=== PATIENT | male | born 1945 | race Hispanic/Latino ===

== ENCOUNTER 2020-02-06 12:20 | Emergency (ER) | payer MEDICARE ==
[2020-02-06 12:23] VITALS: BP 145/62
[2020-02-06 12:50] LABS: Basophils % (Auto) 0.5 % (0.0-1.8); Eosinophils # (Auto) 0.2 K/mm3 (0.0-0.4); Eosinophils % (Auto) 1.8 % (0.0-4.3); Hematocrit 29.8 % (35.5-45.6); Hemoglobin 9.6 gm/dl (11.8-15.2); Lymphocytes # (Auto) 1.9 K/mm3 (1.2-5.4); Lymphocytes % (Auto) 20.2 % (13.4-35.0); Mean Corpuscular HGB Conc 32 % (32-34); Mean Corpuscular Volume 89 fl (84-94); Monocytes # (Auto) 0.5 K/mm3 (0.0-0.8); Monocytes % (Auto) 5.8 % (0.0-7.3); Platelet Count 240 K/mm3 (140-440); Red Blood Count 3.36 M/mm3 (3.65-5.03); Red Cell Distribution Width 19.1 % (13.2-15.2)
[2020-02-06 13:02] LABS: Calcium 9.4 mg/dL (8.4-10.2)
--- NOTE | 2020-02-06 13:15 | Emergency Department Report ---
HPI - General Chief Complaint: Psych PUI?: No Time Seen by Provider: 02/06/20 12:57 - HPI HPI: Room 3 The patient is a 75-year-old male present with a chief complaint of combative behavior. The exterminator termite states the patient has been combative for the past 2 days. The patient has a history of bipolar disorder, schizophrenia and dementia. Nurse states the home health team started the patient on dementia medications but the patient has not improved. She states the patient has been throwing things and not sleeping. The patient was found dragging his roommate in the room. Patient denies having any complaints ED Past Medical Hx - Past Medical History Previous Medical History?: Yes Hx Hypertension: Yes Hx CVA: Yes Hx Congestive Heart Failure: Yes Hx Diabetes: Yes Hx Deep Vein Thrombosis: Yes Hx COPD: Yes - Family History Family history: no significant - Social History Smoking Status: Never Smoker Substance Use Type: None ED Review of Systems ROS: Stated complaint: MED CLEARANCE Other details as noted in HPI Constitutional: no symptoms reported Respiratory: no symptoms reported Endocrine: no symptoms reported Neurological: denies: headache Physical Exam - Physical Exam Vital Signs: Vital Signs 02/06/20 12:20 Temperature 97.9 F Pulse Rate 71 Respiratory 16 Rate Blood Pressure 145/62 O2 Sat by Pulse 98 Oximetry Physical Exam: GENERAL: The patient is well-developed well-nourished male lying on stretcher not appearing to be in acute distress. [] HEENT: Normocephalic. Atraumatic. Extraocular motions are intact. Patient has moist mucous membranes. NECK: Supple. Trachea midline CHEST/LUNGS: Clear to auscultation. There is no respiratory distress noted. HEART/CARDIOVASCULAR: Regular. There is no tachycardia. There is no gallop rub or murmur. ABDOMEN: Abdomen is soft, nontender. Patient has normal bowel sounds. There is no abdominal distention. SKIN: There is no rash. There is no edema. There is no diaphoresis. NEURO: The patient is awake, alert, and oriented. The patient is cooperative. The patient has no focal neurologic deficits. The patient has normal speech. Cranial nerves II through XII grossly intact MUSCULOSKELETAL: There is no evidence of acute injury. ED Course Vital Signs 02/06/20 12:20 Temperature 97.9 F Pulse Rate 71 Respiratory 16 Rate Blood Pressure 145/62 O2 Sat by Pulse 98 Oximetry ED Medical Decision Making - Lab Data Result diagrams: 02/06/20 12:25 02/06/20 12:25 Laboratory Tests 02/06/20 02/06/20 02/06/20 12:25 12:25 12:25 WBC RBC Hgb Hct MCV MCH MCHC RDW Plt Count Lymph % (Auto) Smith % (Auto) Eos % (Auto) Baso % (Auto) Lymph # Smith # Eos # Baso # Seg Neutrophils % Seg Neutrophils # Sodium 140 Potassium 4.5 Chloride 103.0 Carbon Dioxide 25 Anion Gap 17 BUN 21 H Creatinine 1.7 H Estimated GFR 39 BUN/Creatinine Ratio 12 Glucose 81 Calcium 9.4 Urine Color Urine Turbidity Urine pH Ur Specific Harwood Urine Protein Urine Glucose (UA) Urine Ketones Urine Blood Urine Nitrite Urine Bilirubin Urine Urobilinogen Ur Leukocyte Esterase Urine WBC (Auto) Urine RBC (Auto) Urine Mucus Salicylates < 0.3 L Urine Opiates Screen Urine Methadone Screen Acetaminophen < 5.0 L Ur Barbiturates Screen Ur Phencyclidine Scrn Ur Amphetamines Screen U Benzodiazepines Scrn Urine Cocaine Screen U Marijuana (THC) Screen Plasma/Serum Alcohol 02/06/20 02/06/20 02/06/20 12:25 12:25 13:49 WBC 9.4 RBC 3.36 L Hgb 9.6 L Hct 29.8 L MCV 89 MCH 29 MCHC 32 RDW 19.1 H Plt Count 240 Lymph % (Auto) 20.2 Smith % (Auto) 5.8 Eos % (Auto) 1.8 Baso % (Auto) 0.5 Lymph # 1.9 Smith # 0.5 Eos # 0.2 Baso # 0.0 Seg Neutrophils % 71.7 H Seg Neutrophils # 6.7 Sodium Potassium Chloride Carbon Dioxide Anion Gap BUN Creatinine Estimated GFR BUN/Creatinine Ratio Glucose Calcium Urine Color Yellow Urine Turbidity Slightly-cloudy Urine pH 8.0 H Ur Specific Harwood 1.009 Urine Protein 30 mg/dl Urine Glucose (UA) Neg Urine Ketones Neg Urine Blood Neg Urine Nitrite Neg Urine Bilirubin Neg Urine Urobilinogen < 2.0 Ur Leukocyte Esterase Lg Urine WBC (Auto) 4.0 Urine RBC (Auto) 2.0 Urine Mucus Few Salicylates Urine Opiates Screen Urine Methadone Screen Acetaminophen Ur Barbiturates Screen Ur Phencyclidine Scrn Ur Amphetamines Screen U Benzodiazepines Scrn Urine Cocaine Screen U Marijuana (THC) Screen Plasma/Serum Alcohol < 0.01 02/06/20 13:49 WBC RBC Hgb Hct MCV MCH MCHC RDW Plt Count Lymph % (Auto) Smith % (Auto) Eos % (Auto) Baso % (Auto) Lymph # Smith # Eos # Baso # Seg Neutrophils % Seg Neutrophils # Sodium Potassium Chloride Carbon Dioxide Anion Gap BUN Creatinine Estimated GFR BUN/Creatinine Ratio Glucose Calcium Urine Color Urine Turbidity Urine pH Ur Specific Harwood Urine Protein Urine Glucose (UA) Urine Ketones Urine Blood Urine Nitrite Urine Bilirubin Urine Urobilinogen Ur Leukocyte Esterase Urine WBC (Auto) Urine RBC (Auto) Urine Mucus Salicylates Urine Opiates Screen Presumptive negative Urine Methadone Screen Presumptive negative Acetaminophen Ur Barbiturates Screen Presumptive negative Ur Phencyclidine Scrn Presumptive negative Ur Amphetamines Screen Presumptive negative U Benzodiazepines Scrn Presumptive negative Urine Cocaine Screen Presumptive negative U Marijuana (THC) Screen Presumptive negative Plasma/Serum Alcohol - Radiology Data Radiology results: report reviewed (CT head), image reviewed (CT head) [facility] [address] [place] [address] Cat Scan Report Signed Patient: PARMINDER STARK MR#: [id number] 02 : 1945 Acct:[id number] Age/Sex: 75 / M ADM Date: 02/06/20 Loc: ED Attending Dr: Ordering Physician: KATHE VILLALOBOS MD Date of Service: 02/06/20 Procedure(s): CT head/brain wo con Accession Number(s): [id number] cc: KATHE VILLALOBOS MD CT head/brain wo con INDICATION / CLINICAL INFORMATION: 75 years Male; Combative behavior. TECHNIQUE: Routine CT head without contrast. All CT scans at this location are performed using CT dose reduction for ALARA by means of automated exposure control. COMPARISON: None. FINDINGS: BRAIN / INTRACRANIAL CONTENTS: There is no old infarct involving the right ganglia capsular region with encephalomalacia and ex vacuo dilatation of the right lateral ventricle. There is otherwise moderate to cerebral white matter disease most consistent with microvascular angiopathy. There is mild cerebral atrophy. There is no definitive CT evidence of acute intracranial hemorrhage or significant mass effect. ORBITS: No significant abnormality of visualized orbits. SINUSES / MASTOIDS: No significant abnormality the visualized paranasal sinuses or mastoid air cells. CRANIOCERVICAL JUNCTION: No significant abnormality. ADDITIONAL FINDINGS: None. IMPRESSION: 1. There is no old infarct involving the right basal ganglia with encephalomalacia. 2. There is otherwise moderate microvascular angiopathy without CT evidence of acute intracranial hemorrhage. Signer Name: Bishnu Mcbride MD Signed: 02/06/2020 2:20 PM Workstation Name: [id number] Transcribed By: MR Dictated By: Bishnu Mcbride MD Electronically Authenticated By: Bishnu Mcbride MD Signed Date/Time: 02/06/201419 DD/ 17 TD/TT: - Differential Diagnosis Dementia, bipolar disorder, schizophrenia Critical care attestation.: If time is entered above; I have spent that time in minutes in the direct care of this critically ill patient, excluding procedure time. ED Disposition Clinical Impression: Dementia Disposition: DC/TX-65 PSY HOSP/PSY UNIT Is pt being admited?: No Does the pt Need Aspirin: No Condition: Stable Additional Instructions: Return to the emergency department should you develop worsening symptoms, inability to tolerate food or liquids, high fever or any other concerns Time of Disposition: 15:22 (Transferred to [facility])
--- NOTE | 2020-02-06 14:25 | Cat Scan Report ---
CT head/brain wo con INDICATION / CLINICAL INFORMATION: 75 years Male; Combative behavior. TECHNIQUE: Routine CT head without contrast. All CT scans at this location are performed using CT dos e reduction for ALARA by means of automated exposure control. COMPARISON: None. FINDINGS: BRAIN / INTRACRANIAL CONTENTS: There is no old infarct involving the right ganglia capsular region wi th encephalomalacia and ex vacuo dilatation of the right lateral ventricle. There is otherwise modera te to cerebral white matter disease most consistent with microvascular angiopathy. There is mild cere bral atrophy. There is no definitive CT evidence of acute intracranial hemorrhage or significant mass effect. ORBITS: No significant abnormality of visualized orbits. SINUSES / MASTOIDS: No significant abnormality the visualized paranasal sinuses or mastoid air cells. CRANIOCERVICAL JUNCTION: No significant abnormality. ADDITIONAL FINDINGS: None. IMPRESSION: 1. There is no old infarct involving the right basal ganglia with encephalomalacia. 2. There is otherwise moderate microvascular angiopathy without CT evidence of acute intracranial hem orrhage. Signer Name: Bishnu Mcbride MD Signed: 02/06/2020 2:20 PM Workstation Name: [id number]
[2020-02-06 14:36] LABS: Amphetamine Screen,Urine PRESUMPTIVE NEGATIVE; Benzodiazepines Screen,Urine PRESUMPTIVE NEGATIVE; Cannabinoid Screen,Urine PRESUMPTIVE NEGATIVE; Cocaine Screen,Urine PRESUMPTIVE NEGATIVE; Methadone Screen,Urine PRESUMPTIVE NEGATIVE; Opiate Screen,Urine PRESUMPTIVE NEGATIVE
[2020-02-06 14:46] LABS: Bilirubin,Urine NEG (Negative); Blood,Urine NEG (Negative); Color,Urine Yellow (Yellow); Mucus,Urine FEW /HPF; Urobilinogen,Urine < 2.0 mg/dL (<2.0)
== END 2020-02-06 21:48 ==
LOC: ED 12:20
DX: F03.91 Unspecified dementia, unspecified severity, with behavioral disturbance (principal); I11.0 Hypertensive heart disease with heart failure; I50.9 Heart failure, unspecified; E11.9 Type 2 diabetes mellitus without complications; J44.9 Chronic obstructive pulmonary disease, unspecified; Z86.73 Personal history of transient ischemic attack (TIA), and cerebral infarction without residual deficits; Z86.718 Personal history of other venous thrombosis and embolism; Z88.8 Allergy status to other drugs, medicaments and biological substances
CPT/HCPCS: 36415; 70450; 80048; 80307; 80320; 81001; 82962; 85025; G0480

== ENCOUNTER 2020-02-06 17:34 | Inpatient (IN) | payer MEDICARE ==
--- NOTE | 2020-02-07 09:30 | History and Physical Report ---
GP History & Physical - History of Present Illness Date of admission: 02/06/20 Date of Examination: 02/07/20 Reason for Admission: Danger to others History of Present Illness: Héctor Stark is a 75y/o male who was admitted for combative behavior toward his caregiver and not sleeping at night, according to medical record. During my interview with the patient this morning, he is sitting in the dayroom, awake. He is confused. He is soft spoken. He can not give any insight to his history or what's going on with him. He says, "I'm not sure why I'm here," when asked his reason for admission. When asking the patient about his mood, he says, "I feel apprehensive." He could not further explain what he was feeling. He denies SI/HI or hallucinations of any kind. PAST PSYCHIATRIC HISTORY Unable to obtain PAST MEDICAL HISTORY: Unable to obtain Family Psychiatric History: Unable to obtain SOCIAL HISTORY Unable to obtain REVIEW OF SYSTEMS Constitutional: Negative for weight loss ENT: Negative for stridor Respiratory: Negative for cough or hemoptysis All other systems reviewed and are negative MENTAL STATUS EXAMINATION General Appearance: Dressed appropriately. Behavior: Shaky, Cooperative Mood: "apprehensive" Affect: Congruent with stated mood Speech: Low tone, and normal pace Thought Process: Impaired Suicidal Ideation: Denies Homicidal Ideation: Denies Hallucinations: Denies Delusions: None elicited Insight and Judgment: Limited Memory/Cognition: Impaired ASSESSMENT Schizoaffective Disorder Treatment Plan Patient will be admitted for inpatient psychiatric evaluation, medication adjustment and close monitoring The patient's behavior, mood, sleep and appetite will be closely monitored. Patient will be enrolled in individual and group therapeutic sessions and encouraged to attend. Patient will be provided with a safe and structured environment. Patient's physical health needs will be addressed by the Hospitalist. Hospitalist Consulted Labs including CBC, CMP, Lipid profile and Hemoglobin A1C ordered Social Assessment will be completed and the Equipment Maintenance Supervisor will work with patient and family to ensure a suitable and safe disposition Medication adjustment will be made as clinically indicated Usual Wellness Anabaptist/Preservation: Continued home medications Risperidone 0.5mg po BID Trazodone 50mg po qhs Geodon 10mg IM q6h prn agitation This is an acknowledgement statement that Héctor Stark is a 75y/o male patient who requires inpatient psychiatric admission for treatment which could reasonably be expected to improve the patient's condition for Schizoaffective Disorder Estimated period of time patient will need to remain in the hospital: [7] Plan for post-hospital care: [Outpatient ] Legal Status: Voluntary Reaction to Hospitalization: Accepting Medications and Allergies Allergies Allergy/AdvReac Type Severity Reaction Status Date / Time meperidine [From Demerol] Allergy Unknown Verified 02/06/20 12:23 sulfamethoxazole Allergy Unknown Verified 02/06/20 12:23 [From Bactrim] trimethoprim [From Bactrim] Allergy Unknown Verified 02/06/20 12:23 Home Medications Medication Instructions Recorded Confirmed Last Taken Type Amiodarone [Cordarone 200 MG TAB] 400 mg PO BID 02/07/20 02/07/20 Unknown History Aspirin [Aspirin BABY CHEW TAB] 81 mg PO DAILY 02/07/20 02/07/20 Unknown History Atorvastatin 40 mg PO HS 02/07/20 02/07/20 Unknown History Docusate Sodium [Colace CAP] 100 mg PO BID 02/07/20 02/07/20 Unknown History Famotidine [Pepcid] 20 mg PO HS 02/07/20 02/07/20 Unknown History Ferrous Sulfate [Iron 325 MG] 325 mg PO DAILY 02/07/20 02/07/20 Unknown History Insulin Detemir (Nf) [Levemir 3 units SQ BID 02/07/20 02/07/20 Unknown History Flextouch (Nf)] Ticagrelor [Brilinta] 90 mg PO BID 02/07/20 02/07/20 Unknown History clonazePAM [ Klonopin] 0.25 mg PO BID PRN 02/07/20 02/07/20 Unknown History Results - Results Labs/Vitals: Laboratory Last Values POC Glucose 125 (70-105) H 02/06/20 22:52 Hemoglobin A1c 5.1 % (4-6) 02/06/20 12:25 Last Vital Signs Temp 97.4 F L 02/06/20 23:22 Pulse 72 02/06/20 23:22 Resp 20 02/06/20 23:22 BP 143/69 02/06/20 23:22 Pulse Ox 97 02/06/20 23:22 Physical Examination - Constitutional Vitals: Vital Signs Temp Pulse Resp BP Pulse Ox 97.4 F L 72 20 143/69 97 02/06/20 23:22 02/06/20 23:22 02/06/20 23:22 02/06/20 23:22 02/06/20 23:22 Temperature -Last 24 Hours Temperature 97.4 F Mental Status Exam - Vital signs Last Vital Signs Temp 97.4 F L 02/06/20 23:22 Pulse 72 02/06/20 23:22 Resp 20 02/06/20 23:22 BP 143/69 02/06/20 23:22 Pulse Ox 97 02/06/20 23:22 Physician Certification - Certification Statement Physician Certification Statement: This is an acknowledgement statement that HÉCTOR STARK is a 75 year old M who requires inpatient psychiatric admission for treatment which could reasonably be expected to improve the patient's condition for Estimated period of time patient will need to remain in the hospital: [ ] Plan for post-hospital care: [ ]
[2020-02-07] MEDS ORDERED: ZIPRASIDONE MESYLATE 20 MG VIAL IM PRN (09:44)
[2020-02-07] MEDS: DOCUSATE SODIUM 100 MG CAP PO SCH ×2 (10:38→21:37)
[2020-02-07] MEDS: risperiDONE 0.25 MG TAB PO SCH ×2 (10:38→21:36)
[2020-02-07] MEDS: FERROUS SULFATE 325 MG TAB PO SCH (10:38)
[2020-02-07] MEDS: ASPIRIN 81 MG TAB CHEW PO SCH (10:38)
[2020-02-07] MEDS: TICAGRELOR 90 MG TAB PO SCH ×2 (10:45→21:35)
[2020-02-07] MEDS: AMIODARONE 200 MG TAB PO SCH ×2 (10:45→21:36)
[2020-02-07] MEDS: INSULIN GLARGINE 100 UNITS/ML SUB-Q SCH (17:38)
[2020-02-07] MEDS: clonazePAM 0.5 MG TAB PO PRN (17:56)
[2020-02-07 20:51] LABS: Basophils % (Auto) 0.4 % (0.0-1.8); Eosinophils # (Auto) 0.1 K/mm3 (0.0-0.4); Eosinophils % (Auto) 0.7 % (0.0-4.3); Hematocrit 31.1 % (35.5-45.6); Lymphocytes # (Auto) 1.8 K/mm3 (1.2-5.4); Lymphocytes % (Auto) 13.9 % (13.4-35.0); Mean Corpuscular HGB Conc 32 % (32-34); Mean Corpuscular Volume 88 fl (84-94); Monocytes # (Auto) 0.7 K/mm3 (0.0-0.8); Monocytes % (Auto) 5.3 % (0.0-7.3); Platelet Count 253 K/mm3 (140-440); Red Blood Count 3.55 M/mm3 (3.65-5.03); Red Cell Distribution Width 19.1 % (13.2-15.2)
[2020-02-07 21:09] LABS: Albumin 3.1 g/dL (3.9-5); Calcium 9.2 mg/dL (8.4-10.2); Chol/HDL Ratio 2.38 %
[2020-02-07] MEDS: FAMOTIDINE 20 MG TAB PO SCH (21:36)
--- NOTE | 2020-02-08 09:06 | Progress Note ---
Subjective Date of service: 02/08/20 Principal diagnosis: Schizoaffective Disorder Subjective Comment: The patient's medical record was reviewed and the patient's progress was discussed with the nursing staff. During my interview with the patient, he was sitting in the chair awake. He was headed to the dayroom with the tech. The patient is a/o x 2. He has tremors. His speech is low and difficult to understand. The patient says he slept "okay." He says, "yes, I saw a giant lizard last night," when asked about any hallucinations. The patient also says he was "a little bit" suicidal when asked. He also says, "I'm a little depressed." Reason for continued inpatient treatment: The patient is suicidal, and hallucinating. REVIEW OF SYSTEMS Constitutional: Negative for weight loss ENT: Negative for stridor Respiratory: Negative for cough or hemoptysis All other systems reviewed and are negative MENTAL STATUS EXAMINATION General Appearance: Dressed appropriately. Behavior: Shaky, Cooperative Mood: "depressed" Affect: Congruent with stated mood Speech: Low tone, and normal pace, difficulty to understand Thought Process: Impaired Suicidal Ideation: Yes Homicidal Ideation: Denies Hallucinations: Visual Delusions: None elicited Insight and Judgment: Limited Memory/Cognition: Impaired ASSESSMENT Schizoaffective Disorder Treatment Plan Patient will be admitted for inpatient psychiatric evaluation, medication adjustment and close monitoring The patient's behavior, mood, sleep and appetite will be closely monitored. Patient will be enrolled in individual and group therapeutic sessions and encouraged to attend. Patient will be provided with a safe and structured environment. Patient's physical health needs will be addressed by the Hospitalist. [email or web address] Consulted Labs including CBC, CMP, Lipid profile and Hemoglobin A1C ordered Social Assessment will be completed and the Finishing Range Operator will work with patient and family to ensure a suitable and safe disposition Medication adjustment will be made as clinically indicated Usual Wellness Temple/Preservation: Increased Risperidone 0.5mg po BID Estimated period of time patient will need to remain in the hospital: [6] Plan for post-hospital care: [Outpatient ] Medications and Allergies Allergies Allergy/AdvReac Type Severity Reaction Status Date / Time meperidine [From Demerol] Allergy Unknown Verified 02/06/20 12:23 sulfamethoxazole Allergy Unknown Verified 02/06/20 12:23 [From Bactrim] trimethoprim [From Bactrim] Allergy Unknown Verified 02/06/20 12:23 Home Medications Medication Instructions Recorded Confirmed Last Taken Type Amiodarone [Cordarone 200 MG TAB] 400 mg PO BID 02/07/20 02/07/20 Unknown History Aspirin [Aspirin BABY CHEW TAB] 81 mg PO DAILY 02/07/20 02/07/20 Unknown History Atorvastatin 40 mg PO HS 02/07/20 02/07/20 Unknown History Docusate Sodium [Colace CAP] 100 mg PO BID 02/07/20 02/07/20 Unknown History Famotidine [Pepcid] 20 mg PO HS 02/07/20 02/07/20 Unknown History Ferrous Sulfate [Iron 325 MG] 325 mg PO DAILY 02/07/20 02/07/20 Unknown History Insulin Detemir (Nf) [Levemir 3 units SQ BID 02/07/20 02/07/20 Unknown History Flextouch (Nf)] Ticagrelor [Brilinta] 90 mg PO BID 02/07/20 02/07/20 Unknown History clonazePAM [ Klonopin] 0.25 mg PO BID PRN 02/07/20 02/07/20 Unknown History Active Meds: Active Medications Amiodarone HCl (Cordarone) 400 mg PO BID [facility] Last Admin: 02/07/20 21:36 Dose: 400 mg Documented by: Aspirin (Baby Aspirin) 81 mg PO DAILY [facility] Last Admin: 02/07/20 10:38 Dose: 81 mg Documented by: Atorvastatin Calcium (Lipitor) 40 mg PO QHS [facility] Last Admin: 02/07/20 21:37 Dose: 40 mg Documented by: Clonazepam (Klonopin) 0.25 mg PO BID PRN PRN Reason: Anxiety Last Admin: 02/07/20 17:56 Dose: 0.25 mg Documented by: Docusate Sodium (Colace) 100 mg PO BID [facility] Last Admin: 02/07/20 21:37 Dose: 100 mg Documented by: Famotidine (Pepcid) 20 mg PO [facility] Last Admin: 02/07/20 21:36 Dose: 20 mg Documented by: Ferrous Sulfate (Feosol) 325 mg PO DAILY [facility] Last Admin: 02/07/20 10:38 Dose: 325 mg Documented by: Insulin Glargine (Lantus) 3 units SUB-Q BIDDIAB [facility] Last Admin: 02/07/20 17:38 Dose: Not Given Documented by: Risperidone (Risperdal) 0.25 mg PO BID [facility] Last Admin: 02/07/20 21:36 Dose: 0.25 mg Documented by: Ticagrelor (Brilinta) 90 mg PO BID [facility] Last Admin: 02/07/20 21:35 Dose: 90 mg Documented by: Ziprasidone (Geodon) 10 mg IM Q6H PRN PRN Reason: Agitation Results - Results Labs/Vitals: Laboratory Last Values WBC 13.0 K/mm3 (4.5-11.0) H 02/07/20 20:10 RBC 3.55 M/mm3 (3.65-5.03) L 02/07/20 20:10 Hgb 10.0 gm/dl (11.8-15.2) L 02/07/20 20:10 Hct 31.1 % (35.5-45.6) L 02/07/20 20:10 MCV 88 fl (84-94) 02/07/20 20:10 MCH 28 pg (28-32) 02/07/20 20:10 MCHC 32 % (32-34) 02/07/20 20:10 RDW 19.1 % (13.2-15.2) H 02/07/20 20:10 Plt Count 253 K/mm3 (140-440) 02/07/20 20:10 Lymph % (Auto) 13.9 % (13.4-35.0) 02/07/20 20:10 Angelina % (Auto) 5.3 % (0.0-7.3) 02/07/20 20:10 Eos % (Auto) 0.7 % (0.0-4.3) 02/07/20 20:10 Baso % (Auto) 0.4 % (0.0-1.8) 02/07/20 20:10 Lymph # 1.8 K/mm3 (1.2-5.4) 02/07/20 20:10 Angelina # 0.7 K/mm3 (0.0-0.8) 02/07/20 20:10 Eos # 0.1 K/mm3 (0.0-0.4) 02/07/20 20:10 Baso # 0.0 K/mm3 (0.0-0.1) 02/07/20 20:10 Seg Neutrophils % 79.7 % (40.0-70.0) H 02/07/20 20:10 Seg Neutrophils # 10.4 K/mm3 (1.8-7.7) H 02/07/20 20:10 Sodium 137 mmol/L (137-145) 02/07/20 20:10 Potassium 4.2 mmol/L (3.6-5.0) 02/07/20 20:10 Chloride 101.6 mmol/L (98-107) 02/07/20 20:10 Carbon Dioxide 20 mmol/L (22-30) L 02/07/20 20:10 Anion Gap 20 mmol/L 02/07/20 20:10 BUN 27 mg/dL (9-20) H 02/07/20 20:10 Creatinine 2.0 mg/dL (0.8-1.5) H 02/07/20 20:10 Estimated GFR 33 ml/min 02/07/20 20:10 BUN/Creatinine Ratio 14 % 02/07/20 20:10 Glucose 132 mg/dL (75-100) H 02/07/20 20:10 POC Glucose 133 (70-105) H 02/08/20 06:52 Hemoglobin A1c 5.1 % (4-6) 02/06/20 12:25 Calcium 9.2 mg/dL (8.4-10.2) 02/07/20 20:10 Total Bilirubin 0.40 mg/dL (0.1-1.2) 02/07/20 20:10 AST 28 units/L (5-40) 02/07/20 20:10 ALT 19 units/L (7-56) 02/07/20 20:10 Alkaline Phosphatase 79 units/L (35-129) 02/07/20 20:10 Total Protein 7.2 g/dL (6.3-8.2) 02/07/20 20:10 Albumin 3.1 g/dL (3.9-5) L 02/07/20 20:10 Albumin/Globulin Ratio 0.8 % 02/07/20 20:10 Triglycerides 131 mg/dL (2-149) 02/07/20 20:10 Cholesterol 119 mg/dL (50-199) 02/07/20 20:10 LDL Cholesterol Direct 49 mg/dL (50-130) L 02/07/20 20:10 HDL Cholesterol 50 mg/dL (40-59) 02/07/20 20:10 Cholesterol/HDL Ratio 2.38 % 02/07/20 20:10 TSH 5.280 mlU/mL (0.270-4.200) H 02/07/20 20:10 Last Vital Signs Temp 98.4 F 02/07/20 20:00 Pulse 89 02/07/20 20:00 Resp 20 02/07/20 20:00 BP 105/62 02/07/20 20:00 Pulse Ox 98 02/07/20 20:00
[2020-02-08] MEDS: DOCUSATE SODIUM 100 MG CAP PO SCH ×2 (09:42→21:06)
[2020-02-08] MEDS: ASPIRIN 81 MG TAB CHEW PO SCH (09:42)
[2020-02-08] MEDS: FERROUS SULFATE 325 MG TAB PO SCH (09:42)
[2020-02-08] MEDS: TICAGRELOR 90 MG TAB PO SCH ×2 (09:43→21:06)
[2020-02-08] MEDS: AMIODARONE 200 MG TAB PO SCH ×2 (09:43→21:07)
[2020-02-08] MEDS: INSULIN GLARGINE 100 UNITS/ML SUB-Q SCH ×2 (09:43→17:42)
[2020-02-08] MEDS: risperiDONE 0.25 MG TAB PO SCH ×2 (10:00→21:07)
[2020-02-08] MEDS: clonazePAM 0.5 MG TAB PO PRN (15:59)
--- NOTE | 2020-02-08 16:17 | Consultation ---
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 has started dementia medications with no improvement Patient was unable to sleep combative throwing things Patient was admitted to inpatient psych facility for further evaluation and management Hospitalist services were requested medical consult, Patient has history of hypertension diabetes mellitus congestive heart failure DVT and COPD and also has history of CVA Patient is unable to give the history, details obtained from the ER and psych notes Past History Past Medical History: CAD, COPD, diabetes, hypertension, stroke Past Surgical History: No surgical history Social history: no significant social history Medications and Allergies Allergies Allergy/AdvReac Type Severity Reaction Status Date / Time meperidine [From Demerol] Allergy Unknown Verified 02/06/20 12:23 sulfamethoxazole Allergy Unknown Verified 02/06/20 12:23 [From Bactrim] trimethoprim [From Bactrim] Allergy Unknown Verified 02/06/20 12:23 Home Medications Medication Instructions Recorded Confirmed Last Taken Type Amiodarone [Cordarone 200 MG TAB] 400 mg PO BID 02/07/20 02/07/20 Unknown History Aspirin [Aspirin BABY CHEW TAB] 81 mg PO DAILY 02/07/20 02/07/20 Unknown History Atorvastatin 40 mg PO HS 02/07/20 02/07/20 Unknown History Docusate Sodium [Colace CAP] 100 mg PO BID 02/07/20 02/07/20 Unknown History Famotidine [Pepcid] 20 mg PO HS 02/07/20 02/07/20 Unknown History Ferrous Sulfate [Iron 325 MG] 325 mg PO DAILY 02/07/20 02/07/20 Unknown History Insulin Detemir (Nf) [Levemir 3 units SQ BID 02/07/20 02/07/20 Unknown History Flextouch (Nf)] Ticagrelor [Brilinta] 90 mg PO BID 02/07/20 02/07/20 Unknown History clonazePAM [ Klonopin] 0.25 mg PO BID PRN 02/07/20 02/07/20 Unknown History Active Meds: Active Medications Amiodarone HCl (Cordarone) 400 mg PO BID [facility] Last Admin: 02/08/20 09:43 Dose: 400 mg Documented by: Aspirin (Baby Aspirin) 81 mg PO DAILY [facility] Last Admin: 02/08/20 09:42 Dose: 81 mg Documented by: Atorvastatin Calcium (Lipitor) 40 mg PO QHS [facility] Last Admin: 02/07/20 21:37 Dose: 40 mg Documented by: Clonazepam (Klonopin) 0.25 mg PO BID PRN PRN Reason: Anxiety Last Admin: 02/08/20 15:59 Dose: 0.25 mg Documented by: Docusate Sodium (Colace) 100 mg PO BID [facility] Last Admin: 02/08/20 09:42 Dose: 100 mg Documented by: Famotidine (Pepcid) 20 mg PO HS [facility] Last Admin: 02/07/20 21:36 Dose: 20 mg Documented by: Ferrous Sulfate (Feosol) 325 mg PO DAILY [facility] Last Admin: 02/08/20 09:42 Dose: 325 mg Documented by: Insulin Glargine (Lantus) 3 units SUB-Q BIDDIAB [facility] Last Admin: 02/08/20 09:43 Dose: 3 units Documented by: Risperidone (Risperdal) 0.5 mg PO BID [facility] Last Admin: 02/08/20 10:00 Dose: 0.5 mg Documented by: Ticagrelor (Brilinta) 90 mg PO BID [facility] Last Admin: 02/08/20 09:43 Dose: 90 mg Documented by: Ziprasidone (Geodon) 10 mg IM Q6H PRN PRN Reason: Agitation Review of Systems ROS unobtainable: due to mental status Exam - Constitutional Vitals: Temp Pulse Resp BP Pulse Ox 98.4 F 89 20 105/62 98 02/07/20 20:00 02/07/20 20:00 02/07/20 20:00 02/07/20 20:00 02/07/20 20:00 General appearance: Present: no acute distress, well-nourished, other (Confused) - EENT Eyes: Present: PERRL, EOM intact - Neck Neck: Present: supple, normal ROM - Respiratory Respiratory effort: normal Respiratory: bilateral: diminished, negative: rales, rhonchi - Cardiovascular Rhythm: regular Heart Sounds: Present: S1 & S2 - Extremities Extremities: no ischemia, No edema - Abdominal General gastrointestinal: Present: soft, non-tender, non-distended, normal bowel sounds - Integumentary Integumentary: Present: clear, warm - Musculoskeletal Musculoskeletal: strength equal bilaterally - Psychiatric Psychiatric: appropriate mood/affect, other (Confused and slow speech) - Neurologic Neurologic: other (Residual weakness) Results - Labs CBC & Chem 7: 02/07/20 20:10 02/07/20 20:10 Labs: Abnormal lab results 02/07/20 02/07/20 02/07/20 Range/Units 17:05 20:10 20:10 WBC 13.0 H (4.5-11.0) K/mm3 RBC 3.55 L (3.65-5.03) M/mm3 Hgb 10.0 L (11.8-15.2) gm/dl Hct 31.1 L (35.5-45.6) % RDW 19.1 H (13.2-15.2) % Seg Neutrophils % 79.7 H (40.0-70.0) % Seg Neutrophils # 10.4 H (1.8-7.7) K/mm3 Carbon Dioxide 20 L (22-30) mmol/L BUN 27 H (9-20) mg/dL Creatinine 2.0 H (0.8-1.5) mg/dL Glucose 132 H (75-100) mg/dL POC Glucose 127 H (70-105) Albumin 3.1 L (3.9-5) g/dL LDL Cholesterol Direct 49 L (50-130) mg/dL TSH (0.270-4.200) mlU/mL 02/07/20 02/07/20 02/08/20 Range/Units 20:10 20:52 06:52 WBC (4.5-11.0) K/mm3 RBC (3.65-5.03) M/mm3 Hgb (11.8-15.2) gm/dl Hct (35.5-45.6) % RDW (13.2-15.2) % Seg Neutrophils % (40.0-70.0) % Seg Neutrophils # (1.8-7.7) K/mm3 Carbon Dioxide (22-30) mmol/L BUN (9-20) mg/dL Creatinine (0.8-1.5) mg/dL Glucose (75-100) mg/dL POC Glucose 166 H 133 H (70-105) Albumin (3.9-5) g/dL LDL Cholesterol Direct (50-130) mg/dL TSH 5.280 H (0.270-4.200) mlU/mL 02/08/20 Range/Units 12:09 WBC (4.5-11.0) K/mm3 RBC (3.65-5.03) M/mm3 Hgb (11.8-15.2) gm/dl Hct (35.5-45.6) % RDW (13.2-15.2) % Seg Neutrophils % (40.0-70.0) % Seg Neutrophils # (1.8-7.7) K/mm3 Carbon Dioxide (22-30) mmol/L BUN (9-20) mg/dL Creatinine (0.8-1.5) mg/dL Glucose (75-100) mg/dL POC Glucose 167 H (70-105) Albumin (3.9-5) g/dL LDL Cholesterol Direct (50-130) mg/dL TSH (0.270-4.200) mlU/mL Assessment and Plan --Schizoaffective disorder; --Suicidal behavior Management per psych --Hypertension; moderate control Continue current antihypertensives --History of CVA; with residual weakness Supportive care --Coronary artery disease; continue home medications --Dyslipidemia; continue statin --DVT prophylaxis; SCDs while resting --Full CODE STATUS Closely monitor the patient and adjust the management as needed Thank you for this consultation We will follow the patient along with you as needed
[2020-02-08] MEDS: FAMOTIDINE 20 MG TAB PO SCH (21:08)
[2020-02-09] MEDS: INSULIN GLARGINE 100 UNITS/ML SUB-Q SCH ×2 (09:08→17:37)
--- NOTE | 2020-02-09 09:47 | Progress Note ---
Subjective Date of service: 02/09/20 Principal diagnosis: Schizoaffective Disorder Subjective Comment: The patient's medical record was reviewed and the patient's progress was discussed with the nursing staff. During my interview with the patient, the patient is lying in bed, awake. He is a/o x 1. His speech is very difficult to understand. He has tremors. He says, "okay" when asked about his mood. The patient denies hallucinations. When asked about suicidal thoughts, he says, "a little." Reason for continued inpatient treatment: The patient is suicidal, and hallucinating yesterday. REVIEW OF SYSTEMS Constitutional: Negative for weight loss ENT: Negative for stridor Respiratory: Negative for cough or hemoptysis All other systems reviewed and are negative MENTAL STATUS EXAMINATION General Appearance: Dressed appropriately. Behavior: Shaky, Cooperative Mood: "okay" Affect: Congruent with stated mood Speech: Low tone, and normal pace, garbled. difficulty to understand Thought Process: Impaired Suicidal Ideation: Yes Homicidal Ideation: Denies Hallucinations: Denies at present, most recent yesterday Delusions: None elicited Insight and Judgment: Limited Memory/Cognition: Impaired ASSESSMENT Schizoaffective Disorder Treatment Plan Patient will be admitted for inpatient psychiatric evaluation, medication adjustment and close monitoring The patient's behavior, mood, sleep and appetite will be closely monitored. Patient will be enrolled in individual and group therapeutic sessions and encouraged to attend. Patient will be provided with a safe and structured environment. Patient's physical health needs will be addressed by the Hospitalist. Hospitalist Consulted Labs including CBC, CMP, Lipid profile and Hemoglobin A1C ordered Social Assessment will be completed and the Tumbler Dyeing Machine Operator will work with patient and family to ensure a suitable and safe disposition Medication adjustment will be made as clinically indicated Usual Wellness Baptism/Preservation: Increased Risperidone 1mg po BID Changed Klonoin 0.25mg prn to scheduled Estimated period of time patient will need to remain in the hospital: [5] Plan for post-hospital care: [Outpatient ] Medications and Allergies Allergies Allergy/AdvReac Type Severity Reaction Status Date / Time meperidine [From Demerol] Allergy Unknown Verified 02/06/20 12:23 sulfamethoxazole Allergy Unknown Verified 02/06/20 12:23 [From Bactrim] trimethoprim [From Bactrim] Allergy Unknown Verified 02/06/20 12:23 Home Medications Medication Instructions Recorded Confirmed Last Taken Type Amiodarone [Cordarone 200 MG TAB] 400 mg PO BID 02/07/20 02/07/20 Unknown History Aspirin [Aspirin BABY CHEW TAB] 81 mg PO DAILY 02/07/20 02/07/20 Unknown History Atorvastatin 40 mg PO HS 02/07/20 02/07/20 Unknown History Docusate Sodium [Colace CAP] 100 mg PO BID 02/07/20 02/07/20 Unknown History Famotidine [Pepcid] 20 mg PO HS 02/07/20 02/07/20 Unknown History Ferrous Sulfate [Iron 325 MG] 325 mg PO DAILY 02/07/20 02/07/20 Unknown History Insulin Detemir (Nf) [Levemir 3 units SQ BID 02/07/20 02/07/20 Unknown History Flextouch (Nf)] Ticagrelor [Brilinta] 90 mg PO BID 02/07/20 02/07/20 Unknown History clonazePAM [ Klonopin] 0.25 mg PO BID PRN 02/07/20 02/07/20 Unknown History Active Meds: Active Medications Amiodarone HCl (Cordarone) 400 mg PO BID [facility] Last Admin: 02/08/20 21:07 Dose: 400 mg Documented by: Aspirin (Baby Aspirin) 81 mg PO DAILY [facility] Last Admin: 02/08/20 09:42 Dose: 81 mg Documented by: Atorvastatin Calcium (Lipitor) 40 mg PO QHS [facility] Last Admin: 02/08/20 21:07 Dose: 40 mg Documented by: Clonazepam (Klonopin) 0.25 mg PO BID PRN PRN Reason: Anxiety Last Admin: 02/08/20 15:59 Dose: 0.25 mg Documented by: Docusate Sodium (Colace) 100 mg PO BID [facility] Last Admin: 02/08/20 21:06 Dose: 100 mg Documented by: Famotidine (Pepcid) 20 mg PO [facility] Last Admin: 02/08/20 21:08 Dose: 20 mg Documented by: Ferrous Sulfate (Feosol) 325 mg PO DAILY [facility] Last Admin: 02/08/20 09:42 Dose: 325 mg Documented by: Insulin Glargine (Lantus) 3 units SUB-Q BIDDIAB [facility] Last Admin: 02/09/20 09:08 Dose: 3 units Documented by: Risperidone (Risperdal) 0.5 mg PO BID [facility] Last Admin: 02/08/20 21:07 Dose: 0.5 mg Documented by: Ticagrelor (Brilinta) 90 mg PO BID [facility] Last Admin: 02/08/20 21:06 Dose: 90 mg Documented by: Ziprasidone (Geodon) 10 mg IM Q6H PRN PRN Reason: Agitation Results - Results Labs/Vitals: Laboratory Last Values WBC 13.0 K/mm3 (4.5-11.0) H 02/07/20 20:10 RBC 3.55 M/mm3 (3.65-5.03) L 02/07/20 20:10 Hgb 10.0 gm/dl (11.8-15.2) L 02/07/20 20:10 Hct 31.1 % (35.5-45.6) L 02/07/20 20:10 MCV 88 fl (84-94) 02/07/20 20:10 MCH 28 pg (28-32) 02/07/20 20:10 MCHC 32 % (32-34) 02/07/20 20:10 RDW 19.1 % (13.2-15.2) H 02/07/20 20:10 Plt Count 253 K/mm3 (140-440) 02/07/20 20:10 Lymph % (Auto) 13.9 % (13.4-35.0) 02/07/20 20:10 [place] % (Auto) 5.3 % (0.0-7.3) 02/07/20 20:10 Eos % (Auto) 0.7 % (0.0-4.3) 02/07/20 20:10 Baso % (Auto) 0.4 % (0.0-1.8) 02/07/20 20:10 Lymph # 1.8 K/mm3 (1.2-5.4) 02/07/20 20:10 [place] # 0.7 K/mm3 (0.0-0.8) 02/07/20 20:10 Eos # 0.1 K/mm3 (0.0-0.4) 02/07/20 20:10 Baso # 0.0 K/mm3 (0.0-0.1) 02/07/20 20:10 Seg Neutrophils % 79.7 % (40.0-70.0) H 02/07/20 20:10 Seg Neutrophils # 10.4 K/mm3 (1.8-7.7) H 02/07/20 20:10 Sodium 137 mmol/L (137-145) 02/07/20 20:10 Potassium 4.2 mmol/L (3.6-5.0) 02/07/20 20:10 Chloride 101.6 mmol/L (98-107) 02/07/20 20:10 Carbon Dioxide 20 mmol/L (22-30) L 02/07/20 20:10 Anion Gap 20 mmol/L 02/07/20 20:10 BUN 27 mg/dL (9-20) H 02/07/20 20:10 Creatinine 2.0 mg/dL (0.8-1.5) H 02/07/20 20:10 Estimated GFR 33 ml/min 02/07/20 20:10 BUN/Creatinine Ratio 14 % 02/07/20 20:10 Glucose 132 mg/dL (75-100) H 02/07/20 20:10 POC Glucose 119 (70-105) H 02/09/20 06:23 Hemoglobin A1c 5.1 % (4-6) 02/06/20 12:25 Calcium 9.2 mg/dL (8.4-10.2) 02/07/20 20:10 Total Bilirubin 0.40 mg/dL (0.1-1.2) 02/07/20 20:10 AST 28 units/L (5-40) 02/07/20 20:10 ALT 19 units/L (7-56) 02/07/20 20:10 Alkaline Phosphatase 79 units/L (35-129) 02/07/20 20:10 Total Protein 7.2 g/dL (6.3-8.2) 02/07/20 20:10 Albumin 3.1 g/dL (3.9-5) L 02/07/20 20:10 Albumin/Globulin Ratio 0.8 % 02/07/20 20:10 Triglycerides 131 mg/dL (2-149) 02/07/20 20:10 Cholesterol 119 mg/dL (50-199) 02/07/20 20:10 LDL Cholesterol Direct 49 mg/dL (50-130) L 02/07/20 20:10 HDL Cholesterol 50 mg/dL (40-59) 02/07/20 20:10 Cholesterol/HDL Ratio 2.38 % 02/07/20 20:10 TSH 5.280 mlU/mL (0.270-4.200) H 02/07/20 20:10 Last Vital Signs Temp 98.4 F 02/07/20 20:00 Pulse 100 H 02/08/20 19:33 Resp 18 02/08/20 09:22 BP 152/77 02/08/20 19:31 Pulse Ox 98 02/08/20 19:33
[2020-02-09] MEDS: DOCUSATE SODIUM 100 MG CAP PO SCH ×2 (11:26→22:29)
[2020-02-09] MEDS: risperiDONE 1 MG TAB PO SCH ×2 (11:26→22:28)
[2020-02-09] MEDS: ASPIRIN 81 MG TAB CHEW PO SCH (11:27)
[2020-02-09] MEDS: FERROUS SULFATE 325 MG TAB PO SCH (11:27)
[2020-02-09] MEDS: clonazePAM 0.5 MG TAB PO SCH ×2 (11:27→22:28)
[2020-02-09] MEDS: AMIODARONE 200 MG TAB PO SCH ×2 (11:27→22:27)
[2020-02-09] MEDS: TICAGRELOR 90 MG TAB PO SCH ×2 (11:29→22:28)
--- NOTE | 2020-02-09 15:06 | XRay Report ---
CHEST 1 VIEW 2:39 PM INDICATION / CLINICAL INFORMATION: Congestion. COMPARISON: None available. FINDINGS: SUPPORT DEVICES: None. HEART / MEDIASTINUM: Median sternotomy. Mild cardiomegaly. Normal pulmonary vasculature. LUNGS / PLEURA: Tiny calcified granuloma in the left midlung laterally. No significant pulmonary or p leural abnormality. No pneumothorax. ADDITIONAL FINDINGS: No significant additional findings. IMPRESSION: No acute findings. Signer Name: Ramos Osborne MD Signed: 02/09/2020 3:02 PM Workstation Name: [id number]
[2020-02-09] MEDS: FAMOTIDINE 20 MG TAB PO SCH (22:27)
[2020-02-10] MEDS: INSULIN GLARGINE 100 UNITS/ML SUB-Q SCH ×2 (08:38→17:25)
--- NOTE | 2020-02-10 08:59 | Progress Note ---
Subjective Date of service: 02/10/20 Principal diagnosis: Schizoaffective Disorder Subjective Comment: The patient's medical record was reviewed and the patient's progress was discussed with the nursing staff. The nurse note states the patient requested to lay down in his bed last evening. His affect was irritable. Patient would not eat his snack and spit it out. During my interview with the patient, he is in the dayroom, awake. He is a/o x 1. The patient is difficulty to understand. He denies hallucinations. When asked about SI/HI, he replies, "not that bad." He says his mood is "nervous." He could not get out why he felt nervous. Reason for continued inpatient treatment: The patient is suicidal thoughts, and at times irritable. REVIEW OF SYSTEMS Constitutional: Negative for weight loss ENT: Negative for stridor Respiratory: Negative for cough or hemoptysis All other systems reviewed and are negative MENTAL STATUS EXAMINATION General Appearance: Dressed appropriately. Behavior: Shaky, Cooperative Mood: "nervous" Affect: Congruent with stated mood Speech: Low tone, and slow pace, garbled. difficulty to understand Thought Process: Impaired Suicidal Ideation: Yes Homicidal Ideation: Denies Hallucinations: Denies at present Delusions: None elicited Insight and Judgment: Limited Memory/Cognition: Impaired ASSESSMENT Schizoaffective Disorder Treatment Plan Patient will be admitted for inpatient psychiatric evaluation, medication adjustment and close monitoring The patient's behavior, mood, sleep and appetite will be closely monitored. Patient will be enrolled in individual and group therapeutic sessions and encouraged to attend. Patient will be provided with a safe and structured environment. Patient's physical health needs will be addressed by the Hospitalist. Hospitalist Consulted Labs including CBC, CMP, Lipid profile and Hemoglobin A1C ordered Social Assessment will be completed and the Publisher Assistant will work with patient and family to ensure a suitable and safe disposition Medication adjustment will be made as clinically indicated Usual Wellness Jainism/Preservation: Increased Risperidone 1mg po BID yesterday Increase Klonoin 0.5mg po daily Estimated period of time patient will need to remain in the hospital: [4] Plan for post-hospital care: [Outpatient ] Medications and Allergies Allergies Allergy/AdvReac Type Severity Reaction Status Date / Time meperidine [From Demerol] Allergy Unknown Verified 02/06/20 12:23 sulfamethoxazole Allergy Unknown Verified 02/06/20 12:23 [From Bactrim] trimethoprim [From Bactrim] Allergy Unknown Verified 02/06/20 12:23 Home Medications Medication Instructions Recorded Confirmed Last Taken Type Amiodarone [Cordarone 200 MG TAB] 400 mg PO BID 02/07/20 02/07/20 Unknown History Aspirin [Aspirin BABY CHEW TAB] 81 mg PO DAILY 02/07/20 02/07/20 Unknown History Atorvastatin 40 mg PO HS 02/07/20 02/07/20 Unknown History Docusate Sodium [Colace CAP] 100 mg PO BID 02/07/20 02/07/20 Unknown History Famotidine [Pepcid] 20 mg PO HS 02/07/20 02/07/20 Unknown History Ferrous Sulfate [Iron 325 MG] 325 mg PO DAILY 02/07/20 02/07/20 Unknown History Insulin Detemir (Nf) [Levemir 3 units SQ BID 02/07/20 02/07/20 Unknown History Flextouch (Nf)] Ticagrelor [Brilinta] 90 mg PO BID 02/07/20 02/07/20 Unknown History clonazePAM [ Klonopin] 0.25 mg PO BID PRN 02/07/20 02/07/20 Unknown History Active Meds: Active Medications Amiodarone HCl (Cordarone) 400 mg PO BID [facility] Last Admin: 02/09/20 22:27 Dose: 400 mg Documented by: Aspirin (Baby Aspirin) 81 mg PO DAILY [facility] Last Admin: 02/09/20 11:27 Dose: 81 mg Documented by: Atorvastatin Calcium (Lipitor) 40 mg PO QHS [facility] Last Admin: 02/09/20 22:28 Dose: 40 mg Documented by: Clonazepam (Klonopin) 0.25 mg PO BID [facility] Last Admin: 02/09/20 22:28 Dose: 0.25 mg Documented by: Docusate Sodium (Colace) 100 mg PO BID [facility] Last Admin: 02/09/20 22:29 Dose: 100 mg Documented by: Famotidine (Pepcid) 20 mg PO [facility] Last Admin: 02/09/20 22:27 Dose: 20 mg Documented by: Ferrous Sulfate (Feosol) 325 mg PO DAILY [facility] Last Admin: 02/09/20 11:27 Dose: 325 mg Documented by: Insulin Glargine (Lantus) 3 units SUB-Q BIDDIAB [facility] Last Admin: 02/10/20 08:38 Dose: 3 units Documented by: Risperidone (Risperdal) 1 mg PO BID [facility] Last Admin: 02/09/20 22:28 Dose: 1 mg Documented by: Ticagrelor (Brilinta) 90 mg PO BID [facility] Last Admin: 02/09/20 22:28 Dose: 90 mg Documented by: Ziprasidone (Geodon) 10 mg IM Q6H PRN PRN Reason: Agitation Results - Results Labs/Vitals: Laboratory Last Values WBC 13.0 K/mm3 (4.5-11.0) H 02/07/20 20:10 RBC 3.55 M/mm3 (3.65-5.03) L 02/07/20 20:10 Hgb 10.0 gm/dl (11.8-15.2) L 02/07/20 20:10 Hct 31.1 % (35.5-45.6) L 02/07/20 20:10 MCV 88 fl (84-94) 02/07/20 20:10 MCH 28 pg (28-32) 02/07/20 20:10 MCHC 32 % (32-34) 02/07/20 20:10 RDW 19.1 % (13.2-15.2) H 02/07/20 20:10 Plt Count 253 K/mm3 (140-440) 02/07/20 20:10 Lymph % (Auto) 13.9 % (13.4-35.0) 02/07/20 20:10 [place] % (Auto) 5.3 % (0.0-7.3) 02/07/20 20:10 Eos % (Auto) 0.7 % (0.0-4.3) 02/07/20 20:10 Baso % (Auto) 0.4 % (0.0-1.8) 02/07/20 20:10 Lymph # 1.8 K/mm3 (1.2-5.4) 02/07/20 20:10 [place] # 0.7 K/mm3 (0.0-0.8) 02/07/20 20:10 Eos # 0.1 K/mm3 (0.0-0.4) 02/07/20 20:10 Baso # 0.0 K/mm3 (0.0-0.1) 02/07/20 20:10 Seg Neutrophils % 79.7 % (40.0-70.0) H 02/07/20 20:10 Seg Neutrophils # 10.4 K/mm3 (1.8-7.7) H 02/07/20 20:10 Sodium 137 mmol/L (137-145) 02/07/20 20:10 Potassium 4.2 mmol/L (3.6-5.0) 02/07/20 20:10 Chloride 101.6 mmol/L (98-107) 02/07/20 20:10 Carbon Dioxide 20 mmol/L (22-30) L 02/07/20 20:10 Anion Gap 20 mmol/L 02/07/20 20:10 BUN 27 mg/dL (9-20) H 02/07/20 20:10 Creatinine 2.0 mg/dL (0.8-1.5) H 02/07/20 20:10 Estimated GFR 33 ml/min 02/07/20 20:10 BUN/Creatinine Ratio 14 % 02/07/20 20:10 Glucose 132 mg/dL (75-100) H 02/07/20 20:10 POC Glucose 84 (70-105) 02/10/20 08:04 Hemoglobin A1c 5.1 % (4-6) 02/06/20 12:25 Calcium 9.2 mg/dL (8.4-10.2) 02/07/20 20:10 Total Bilirubin 0.40 mg/dL (0.1-1.2) 02/07/20 20:10 AST 28 units/L (5-40) 02/07/20 20:10 ALT 19 units/L (7-56) 02/07/20 20:10 Alkaline Phosphatase 79 units/L (35-129) 02/07/20 20:10 Total Protein 7.2 g/dL (6.3-8.2) 02/07/20 20:10 Albumin 3.1 g/dL (3.9-5) L 02/07/20 20:10 Albumin/Globulin Ratio 0.8 % 02/07/20 20:10 Triglycerides 131 mg/dL (2-149) 02/07/20 20:10 Cholesterol 119 mg/dL (50-199) 02/07/20 20:10 LDL Cholesterol Direct 49 mg/dL (50-130) L 02/07/20 20:10 HDL Cholesterol 50 mg/dL (40-59) 02/07/20 20:10 Cholesterol/HDL Ratio 2.38 % 02/07/20 20:10 TSH 5.280 mlU/mL (0.270-4.200) H 02/07/20 20:10 Last Vital Signs Temp 98.6 F 02/09/20 19:47 Pulse 75 02/09/20 19:47 Resp 20 02/09/20 19:47 BP 134/56 02/09/20 19:47 Pulse Ox 97 02/09/20 19:47
[2020-02-10] MEDS: risperiDONE 1 MG TAB PO SCH ×2 (09:21→21:43)
[2020-02-10] MEDS: FERROUS SULFATE 325 MG TAB PO SCH (09:21)
[2020-02-10] MEDS: ASPIRIN 81 MG TAB CHEW PO SCH (09:21)
[2020-02-10] MEDS: DOCUSATE SODIUM 100 MG CAP PO SCH ×2 (09:21→21:43)
[2020-02-10] MEDS: TICAGRELOR 90 MG TAB PO SCH ×2 (09:21→21:44)
[2020-02-10] MEDS: clonazePAM 0.5 MG TAB PO SCH ×2 (09:21→21:44)
[2020-02-10] MEDS: AMIODARONE 200 MG TAB PO SCH ×2 (09:22→21:43)
--- NOTE | 2020-02-10 11:13 | Fluoroscopy Report ---
MODIFIED BARIUM SWALLOW INDICATION: Difficuty in swallow TECHNIQUE: Swallowing was evaluated in the lateral position under direct fluoroscopy. FINDINGS: This examination was terminated because the patient refused to ingest the different barium consistencies. IMPRESSION: Incomplete exam secondary to noncooperation of the patient. Fluoroscopic time: 0.1 minutes Number of fluoroscopic images: 1 Signer Name: Kennedy Vázquez Jr, MD Signed: 02/10/2020 11:09 AM Workstation Name: [id number]
[2020-02-10] MEDS: FAMOTIDINE 20 MG TAB PO SCH (21:43)
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
[2020-02-11] MEDS: INSULIN GLARGINE 100 UNITS/ML SUB-Q SCH ×2 (10:30→18:32)
[2020-02-11] MEDS: TICAGRELOR 90 MG TAB PO SCH ×2 (10:45→21:43)
[2020-02-11] MEDS: FERROUS SULFATE 325 MG TAB PO SCH (10:45)
[2020-02-11] MEDS: ASPIRIN 81 MG TAB CHEW PO SCH (10:45)
[2020-02-11] MEDS: DOCUSATE SODIUM 100 MG CAP PO SCH ×2 (10:46→21:43)
[2020-02-11] MEDS: AMIODARONE 200 MG TAB PO SCH ×2 (10:46→21:42)
[2020-02-11] MEDS: risperiDONE 1 MG TAB PO SCH ×2 (10:59→21:42)
[2020-02-11] MEDS: clonazePAM 0.5 MG TAB PO SCH ×3 (13:25→20:57)
[2020-02-11] MEDS ORDERED: WATER FOR INJ Sterile (PF) 10 ML ONE (13:56)
[2020-02-11] MEDS: FAMOTIDINE 20 MG TAB PO SCH (21:41)
--- NOTE | 2020-02-12 09:03 | Progress Note ---
Subjective Date of service: 02/12/20 Principal diagnosis: Dementia w/Behavioral Disturbance Subjective Comment: The patient's medical record was reviewed and the patient's progress was discussed with the nursing staff. During my interview with the patient, he is in the dayroom, awake. He is a/o x 2. The patient is difficulty to understand. He denies hallucinations. The patient also denies SI/HI. The patient describes his mood as "not bad." He says he slept "alright." He denies any problems with his appetite. Reason for continued inpatient treatment: The patient is improving. Will continue to stabilize and plan for discharge REVIEW OF SYSTEMS Constitutional: Negative for weight loss ENT: Negative for stridor Respiratory: Negative for cough or hemoptysis All other systems reviewed and are negative MENTAL STATUS EXAMINATION General Appearance: Dressed appropriately. Behavior: calm, cooperative Mood: "not bad" Affect: Congruent with stated mood Speech: Low tone, and slow pace, garbled. difficulty to understand Thought Process: Impaired Suicidal Ideation: Denies Homicidal Ideation: Denies Hallucinations: Denies Delusions: None elicited Insight and Judgment: Limited Memory/Cognition: Impaired ASSESSMENT Schizoaffective Disorder Treatment Plan Patient will be admitted for inpatient psychiatric evaluation, medication adjustment and close monitoring The patient's behavior, mood, sleep and appetite will be closely monitored. Patient will be enrolled in individual and group therapeutic sessions and encouraged to attend. Patient will be provided with a safe and structured environment. Patient's physical health needs will be addressed by the Hospitalist. Hospitalist Consulted Labs including CBC, CMP, Lipid profile and Hemoglobin A1C ordered Social Assessment will be completed and the Compliance Mgr will work with patient and family to ensure a suitable and safe disposition Medication adjustment will be made as clinically indicated Usual Wellness Holiness/Preservation: Increase Klonoin 0.5mg po TID yesterday No changes made today Estimated period of time patient will need to remain in the hospital: [1] Plan for post-hospital care: [Outpatient ] Medications and Allergies Allergies Allergy/AdvReac Type Severity Reaction Status Date / Time meperidine [From Demerol] Allergy Unknown Verified 02/06/20 12:23 sulfamethoxazole Allergy Unknown Verified 02/06/20 12:23 [From Bactrim] trimethoprim [From Bactrim] Allergy Unknown Verified 02/06/20 12:23 Home Medications Medication Instructions Recorded Confirmed Last Taken Type Amiodarone [Cordarone 200 MG TAB] 400 mg PO BID 02/07/20 02/07/20 Unknown History Aspirin [Aspirin BABY CHEW TAB] 81 mg PO DAILY 02/07/20 02/07/20 Unknown History Atorvastatin 40 mg PO HS 02/07/20 02/07/20 Unknown History Docusate Sodium [Colace CAP] 100 mg PO BID 02/07/20 02/07/20 Unknown History Famotidine [Pepcid] 20 mg PO HS 02/07/20 02/07/20 Unknown History Ferrous Sulfate [Iron 325 MG] 325 mg PO DAILY 02/07/20 02/07/20 Unknown History Insulin Detemir (Nf) [Levemir 3 units SQ BID 02/07/20 02/07/20 Unknown History Flextouch (Nf)] Ticagrelor [Brilinta] 90 mg PO BID 02/07/20 02/07/20 Unknown History clonazePAM [ Klonopin] 0.25 mg PO BID PRN 02/07/20 02/07/20 Unknown History Active Meds: Active Medications Amiodarone HCl (Cordarone) 400 mg PO BID [facility] Last Admin: 02/11/20 21:42 Dose: 400 mg Documented by: Aspirin (Baby Aspirin) 81 mg PO DAILY [facility] Last Admin: 02/11/20 10:45 Dose: 81 mg Documented by: Atorvastatin Calcium (Lipitor) 40 mg PO QHS [facility] Last Admin: 02/11/20 21:41 Dose: 40 mg Documented by: Clonazepam (Klonopin) 0.5 mg PO TID [facility] Last Admin: 02/11/20 20:57 Dose: 0.5 mg Documented by: Docusate Sodium (Colace) 100 mg PO BID [facility] Last Admin: 02/11/20 21:43 Dose: 100 mg Documented by: Famotidine (Pepcid) 20 mg PO [facility] Last Admin: 02/11/20 21:41 Dose: 20 mg Documented by: Ferrous Sulfate (Feosol) 325 mg PO DAILY [facility] Last Admin: 02/11/20 10:45 Dose: 325 mg Documented by: Insulin Glargine (Lantus) 3 units SUB-Q BIDDIAB [facility] Last Admin: 02/11/20 18:32 Dose: 3 units Documented by: Risperidone (Risperdal) 2 mg PO BID [place] Last Admin: 02/11/20 21:42 Dose: 2 mg Documented by: Ticagrelor (Brilinta) 90 mg PO BID [facility] Last Admin: 02/11/20 21:43 Dose: 90 mg Documented by: Ziprasidone (Geodon) 10 mg IM Q6H PRN PRN Reason: Agitation Last Admin: 02/11/20 14:02 Dose: 10 mg Documented by: Results - Results Labs/Vitals: Laboratory Last Values WBC 13.0 K/mm3 (4.5-11.0) H 02/07/20 20:10 RBC 3.55 M/mm3 (3.65-5.03) L 02/07/20 20:10 Hgb 10.0 gm/dl (11.8-15.2) L 02/07/20 20:10 Hct 31.1 % (35.5-45.6) L 02/07/20 20:10 MCV 88 fl (84-94) 02/07/20 20:10 MCH 28 pg (28-32) 02/07/20 20:10 MCHC 32 % (32-34) 02/07/20 20:10 RDW 19.1 % (13.2-15.2) H 02/07/20 20:10 Plt Count 253 K/mm3 (140-440) 02/07/20 20:10 Lymph % (Auto) 13.9 % (13.4-35.0) 02/07/20 20:10 [place] % (Auto) 5.3 % (0.0-7.3) 02/07/20 20:10 Eos % (Auto) 0.7 % (0.0-4.3) 02/07/20 20:10 Baso % (Auto) 0.4 % (0.0-1.8) 02/07/20 20:10 Lymph # 1.8 K/mm3 (1.2-5.4) 02/07/20 20:10 [place] # 0.7 K/mm3 (0.0-0.8) 02/07/20 20:10 Eos # 0.1 K/mm3 (0.0-0.4) 02/07/20 20:10 Baso # 0.0 K/mm3 (0.0-0.1) 02/07/20 20:10 Seg Neutrophils % 79.7 % (40.0-70.0) H 02/07/20 20:10 Seg Neutrophils # 10.4 K/mm3 (1.8-7.7) H 02/07/20 20:10 Sodium 137 mmol/L (137-145) 02/07/20 20:10 Potassium 4.2 mmol/L (3.6-5.0) 02/07/20 20:10 Chloride 101.6 mmol/L (98-107) 02/07/20 20:10 Carbon Dioxide 20 mmol/L (22-30) L 02/07/20 20:10 Anion Gap 20 mmol/L 02/07/20 20:10 BUN 27 mg/dL (9-20) H 02/07/20 20:10 Creatinine 2.0 mg/dL (0.8-1.5) H 02/07/20 20:10 Estimated GFR 33 ml/min 02/07/20 20:10 BUN/Creatinine Ratio 14 % 02/07/20 20:10 Glucose 132 mg/dL (75-100) H 02/07/20 20:10 POC Glucose 110 (70-105) H 02/12/20 06:47 Hemoglobin A1c 5.1 % (4-6) 02/06/20 12:25 Calcium 9.2 mg/dL (8.4-10.2) 02/07/20 20:10 Total Bilirubin 0.40 mg/dL (0.1-1.2) 02/07/20 20:10 AST 28 units/L (5-40) 02/07/20 20:10 ALT 19 units/L (7-56) 02/07/20 20:10 Alkaline Phosphatase 79 units/L (35-129) 02/07/20 20:10 Total Protein 7.2 g/dL (6.3-8.2) 02/07/20 20:10 Albumin 3.1 g/dL (3.9-5) L 02/07/20 20:10 Albumin/Globulin Ratio 0.8 % 02/07/20 20:10 Triglycerides 131 mg/dL (2-149) 02/07/20 20:10 Cholesterol 119 mg/dL (50-199) 02/07/20 20:10 LDL Cholesterol Direct 49 mg/dL (50-130) L 02/07/20 20:10 HDL Cholesterol 50 mg/dL (40-59) 02/07/20 20:10 Cholesterol/HDL Ratio 2.38 % 02/07/20 20:10 TSH 5.280 mlU/mL (0.270-4.200) H 02/07/20 20:10 Last Vital Signs Temp 99.1 F 02/11/20 19:59 Pulse 95 H 02/11/20 19:59 Resp 16 02/11/20 19:59 BP 158/77 02/11/20 19:59 Pulse Ox 100 02/11/20 19:59
[2020-02-12] MEDS: AMIODARONE 200 MG TAB PO SCH ×2 (09:17→21:03)
[2020-02-12] MEDS: FERROUS SULFATE 325 MG TAB PO SCH (09:17)
[2020-02-12] MEDS: risperiDONE 1 MG TAB PO SCH ×3 (09:17→21:04)
[2020-02-12] MEDS: clonazePAM 0.5 MG TAB PO SCH ×3 (09:17→21:04)
[2020-02-12] MEDS: TICAGRELOR 90 MG TAB PO SCH ×2 (09:17→21:05)
[2020-02-12] MEDS: DOCUSATE SODIUM 100 MG CAP PO SCH ×2 (09:17→22:00)
[2020-02-12] MEDS: ASPIRIN 81 MG TAB CHEW PO SCH (09:17)
[2020-02-12] MEDS: INSULIN GLARGINE 100 UNITS/ML SUB-Q SCH ×2 (09:18→16:42)
[2020-02-12] MEDS: FAMOTIDINE 20 MG TAB PO SCH (21:03)
--- NOTE | 2020-02-13 09:51 | Progress Note ---
Subjective Date of service: 02/13/20 Principal diagnosis: Dementia w/Behavioral Disturbance Subjective Comment: Psych Nurse note: Pt has been compliant with medication crushed. No aggressive behavior able to make needs known and follow directions. Participated in groups and interacted with peers and staff. No behavior issues. Psych Progress HPI During my interview with the patient, patient in wheel chair, quietly keeping to self with no irrational behavior observed, pt states " I feel good but not great" says he was sleeping fine until he was woken up, denies hearing voices but Says" I hear your voice", no hallucination and reports normal appetite. Reason for continued inpatient treatment: No behavioral disturbances, no agitation or aggression noted. Will continue to observe for mood stability and discharge safely. REVIEW OF SYSTEMS Constitutional: Negative for weight loss ENT: Negative for stridor Respiratory: Negative for cough or hemoptysis All other systems reviewed and are negative MENTAL STATUS EXAMINATION General Appearance: Dressed appropriately. Behavior: calm, cooperative Mood: "not bad" Affect: Congruent with stated mood Speech: Low tone, and slow pace, garbled. difficulty to understand Thought Process: Impaired Suicidal Ideation: Denies Homicidal Ideation: Denies Hallucinations: Denies Delusions: None elicited Insight and Judgment: Limited Memory/Cognition: Impaired ASSESSMENT Schizoaffective Disorder Treatment Plan Patient will be admitted for inpatient psychiatric evaluation, medication adjustment and close monitoring The patient's behavior, mood, sleep and appetite will be closely monitored. Patient will be enrolled in individual and group therapeutic sessions and encouraged to attend. Patient will be provided with a safe and structured environment. Patient's physical health needs will be addressed by the Hospitalist. Hospitalist Consulted Labs including CBC, CMP, Lipid profile and Hemoglobin A1C ordered Social Assessment will be completed and the Track Inspecting Supervisor will work with patient and family to ensure a suitable and safe disposition Medication adjustment will be made as clinically indicated Usual Wellness Mandaen/Preservation: Klonopin now 0.25 TID Estimated period of time patient will need to remain in the hospital: [0] Plan for post-hospital care: [Outpatient ] Medications and Allergies Allergies Allergy/AdvReac Type Severity Reaction Status Date / Time meperidine [From Demerol] Allergy Unknown Verified 02/06/20 12:23 sulfamethoxazole Allergy Unknown Verified 02/06/20 12:23 [From Bactrim] trimethoprim [From Bactrim] Allergy Unknown Verified 02/06/20 12:23 Home Medications Medication Instructions Recorded Confirmed Last Taken Type Amiodarone [Cordarone 200 MG TAB] 400 mg PO BID 02/07/20 02/07/20 Unknown History Aspirin [Aspirin BABY CHEW TAB] 81 mg PO DAILY 02/07/20 02/07/20 Unknown History Atorvastatin 40 mg PO HS 02/07/20 02/07/20 Unknown History Docusate Sodium [Colace CAP] 100 mg PO BID 02/07/20 02/07/20 Unknown History Famotidine [Pepcid] 20 mg PO HS 02/07/20 02/07/20 Unknown History Ferrous Sulfate [Iron 325 MG] 325 mg PO DAILY 02/07/20 02/07/20 Unknown History Insulin Detemir (Nf) [Levemir 3 units SQ BID 02/07/20 02/07/20 Unknown History Flextouch (Nf)] Ticagrelor [Brilinta] 90 mg PO BID 02/07/20 02/07/20 Unknown History clonazePAM [ Klonopin] 0.25 mg PO BID PRN 02/07/20 02/07/20 Unknown History Active Meds: Active Medications Amiodarone HCl (Cordarone) 400 mg PO BID [facility] Last Admin: 02/12/20 21:03 Dose: 400 mg Documented by: Aspirin (Baby Aspirin) 81 mg PO DAILY [facility] Last Admin: 02/12/20 09:17 Dose: 81 mg Documented by: Atorvastatin Calcium (Lipitor) 40 mg PO QHS [facility] Last Admin: 02/12/20 21:05 Dose: 40 mg Documented by: Clonazepam (Klonopin) 0.5 mg PO TID [facility] Last Admin: 02/12/20 21:04 Dose: 0.5 mg Documented by: Docusate Sodium (Colace) 100 mg PO BID [facility] Last Admin: 02/12/20 22:00 Dose: 100 mg Documented by: Famotidine (Pepcid) 20 mg PO [facility] Last Admin: 02/12/20 21:03 Dose: 20 mg Documented by: Ferrous Sulfate (Feosol) 325 mg PO DAILY [facility] Last Admin: 02/12/20 09:17 Dose: 325 mg Documented by: Insulin Glargine (Lantus) 3 units SUB-Q BIDDIAB [facility] Last Admin: 02/12/20 16:42 Dose: 3 units Documented by: Risperidone (Risperdal) 2 mg PO BID [facility] Last Admin: 02/12/20 21:04 Dose: 2 mg Documented by: Ticagrelor (Brilinta) 90 mg PO BID [facility] Last Admin: 02/12/20 21:05 Dose: 90 mg Documented by: Ziprasidone (Geodon) 10 mg IM Q6H PRN PRN Reason: Agitation Last Admin: 02/11/20 14:02 Dose: 10 mg Documented by: Results - Results Labs/Vitals: Laboratory Last Values WBC 13.0 K/mm3 (4.5-11.0) H 02/07/20 20:10 RBC 3.55 M/mm3 (3.65-5.03) L 02/07/20 20:10 Hgb 10.0 gm/dl (11.8-15.2) L 02/07/20 20:10 Hct 31.1 % (35.5-45.6) L 02/07/20 20:10 MCV 88 fl (84-94) 02/07/20 20:10 MCH 28 pg (28-32) 02/07/20 20:10 MCHC 32 % (32-34) 02/07/20 20:10 RDW 19.1 % (13.2-15.2) H 02/07/20 20:10 Plt Count 253 K/mm3 (140-440) 02/07/20 20:10 Lymph % (Auto) 13.9 % (13.4-35.0) 02/07/20 20:10 [place] % (Auto) 5.3 % (0.0-7.3) 02/07/20 20:10 Eos % (Auto) 0.7 % (0.0-4.3) 02/07/20 20:10 Baso % (Auto) 0.4 % (0.0-1.8) 02/07/20 20:10 Lymph # 1.8 K/mm3 (1.2-5.4) 02/07/20 20:10 [place] # 0.7 K/mm3 (0.0-0.8) 02/07/20 20:10 Eos # 0.1 K/mm3 (0.0-0.4) 02/07/20 20:10 Baso # 0.0 K/mm3 (0.0-0.1) 02/07/20 20:10 Seg Neutrophils % 79.7 % (40.0-70.0) H 02/07/20 20:10 Seg Neutrophils # 10.4 K/mm3 (1.8-7.7) H 02/07/20 20:10 Sodium 137 mmol/L (137-145) 02/07/20 20:10 Potassium 4.2 mmol/L (3.6-5.0) 02/07/20 20:10 Chloride 101.6 mmol/L (98-107) 02/07/20 20:10 Carbon Dioxide 20 mmol/L (22-30) L 02/07/20 20:10 Anion Gap 20 mmol/L 02/07/20 20:10 BUN 27 mg/dL (9-20) H 02/07/20 20:10 Creatinine 2.0 mg/dL (0.8-1.5) H 02/07/20 20:10 Estimated GFR 33 ml/min 02/07/20 20:10 BUN/Creatinine Ratio 14 % 02/07/20 20:10 Glucose 132 mg/dL (75-100) H 02/07/20 20:10 POC Glucose 114 (70-105) H 02/13/20 07:48 Hemoglobin A1c 5.1 % (4-6) 02/06/20 12:25 Calcium 9.2 mg/dL (8.4-10.2) 02/07/20 20:10 Total Bilirubin 0.40 mg/dL (0.1-1.2) 02/07/20 20:10 AST 28 units/L (5-40) 02/07/20 20:10 ALT 19 units/L (7-56) 02/07/20 20:10 Alkaline Phosphatase 79 units/L (35-129) 02/07/20 20:10 Total Protein 7.2 g/dL (6.3-8.2) 02/07/20 20:10 Albumin 3.1 g/dL (3.9-5) L 02/07/20 20:10 Albumin/Globulin Ratio 0.8 % 02/07/20 20:10 Triglycerides 131 mg/dL (2-149) 02/07/20 20:10 Cholesterol 119 mg/dL (50-199) 02/07/20 20:10 LDL Cholesterol Direct 49 mg/dL (50-130) L 02/07/20 20:10 HDL Cholesterol 50 mg/dL (40-59) 02/07/20 20:10 Cholesterol/HDL Ratio 2.38 % 02/07/20 20:10 TSH 5.280 mlU/mL (0.270-4.200) H 02/07/20 20:10 Last Vital Signs Temp 98.0 F 02/13/20 08:44 Pulse 86 02/13/20 08:44 Resp 18 02/13/20 08:44 BP 125/59 02/13/20 08:44 Pulse Ox 97 02/13/20 08:44
[2020-02-13] MEDS: DOCUSATE SODIUM 100 MG CAP PO SCH ×3 (10:38→21:24)
[2020-02-13] MEDS: ASPIRIN 81 MG TAB CHEW PO SCH ×2 (10:38→12:44)
[2020-02-13] MEDS: risperiDONE 1 MG TAB PO SCH ×3 (10:38→21:25)
[2020-02-13] MEDS: FERROUS SULFATE 325 MG TAB PO SCH ×2 (10:38→12:44)
[2020-02-13] MEDS: clonazePAM 0.5 MG TAB PO SCH ×4 (10:39→20:23)
[2020-02-13] MEDS: AMIODARONE 200 MG TAB PO SCH ×3 (10:39→21:25)
[2020-02-13] MEDS: TICAGRELOR 90 MG TAB PO SCH ×3 (10:39→21:24)
[2020-02-13] MEDS: INSULIN GLARGINE 100 UNITS/ML SUB-Q SCH ×2 (10:40→19:00)
[2020-02-13] MEDS: FAMOTIDINE 20 MG TAB PO SCH (21:25)
--- NOTE | 2020-02-14 07:13 | Progress Note ---
Subjective Date of service: 02/14/20 Principal diagnosis: Dementia w/Behavioral Disturbance Subjective Comment: Psych Nurse note: pt is alert and oriented to person, speech is slurred, calm and cooperative, no agitation, spent his evening in activity room sitting quietly in chair, medication given crushed in apple sauce, no distress noted, will continue to monitor for safety. Psych Progress HPI Patient awake, alert and oriented. Patient called me to attention about his chair, says its not as comfortable as he would like it, I told him its design for his safety and he laughed. Pt he has been so far so good, politely requested for water/something to drink. Patient then pointed his finger to another pt that he would like to go fishing with her. He endorses good sleep and appetite, medication compliance and has no complaints. Reason for continued inpatient treatment: No reported behavioral disturbances confusion or disorganization. Will observe for mood stability. REVIEW OF SYSTEMS Constitutional: Negative for weight loss ENT: Negative for stridor Respiratory: Negative for cough or hemoptysis All other systems reviewed and are negative MENTAL STATUS EXAMINATION General Appearance: Dressed appropriately. Behavior: calm, cooperative Mood: "so far so good" Affect: Congruent with stated mood Speech: Low tone, and slow pace, garbled. difficulty to understand Thought Process: Unimpaired Suicidal Ideation: Denies Homicidal Ideation: Denies Hallucinations: Denies Delusions: None elicited Insight and Judgment: Limited Memory/Cognition: Impaired ASSESSMENT Schizoaffective Disorder Treatment Plan Patient will be admitted for inpatient psychiatric evaluation, medication adjustment and close monitoring The patient's behavior, mood, sleep and appetite will be closely monitored. Patient will be enrolled in individual and group therapeutic sessions and encouraged to attend. Patient will be provided with a safe and structured environment. Patient's physical health needs will be addressed by the Hospitalist. Hospitalist Consulted Labs including CBC, CMP, Lipid profile and Hemoglobin A1C ordered Social Assessment will be completed and the Silk Spreader will work with patient and family to ensure a suitable and safe disposition Medication adjustment will be made as clinically indicated Usual Wellness Gnosticism/Preservation: Klonopin now 0.25 TID Estimated period of time patient will need to remain in the hospital: [2] Plan for post-hospital care: [Outpatient ] Medications and Allergies Allergies Allergy/AdvReac Type Severity Reaction Status Date / Time meperidine [From Demerol] Allergy Unknown Verified 02/06/20 12:23 sulfamethoxazole Allergy Unknown Verified 02/06/20 12:23 [From Bactrim] trimethoprim [From Bactrim] Allergy Unknown Verified 02/06/20 12:23 Home Medications Medication Instructions Recorded Confirmed Last Taken Type Amiodarone [Cordarone 200 MG TAB] 400 mg PO BID 02/07/20 02/07/20 Unknown History Aspirin [Aspirin BABY CHEW TAB] 81 mg PO DAILY 02/07/20 02/07/20 Unknown History Atorvastatin 40 mg PO HS 02/07/20 02/07/20 Unknown History Docusate Sodium [Colace CAP] 100 mg PO BID 02/07/20 02/07/20 Unknown History Famotidine [Pepcid] 20 mg PO HS 02/07/20 02/07/20 Unknown History Ferrous Sulfate [Iron 325 MG] 325 mg PO DAILY 02/07/20 02/07/20 Unknown History Insulin Detemir (Nf) [Levemir 3 units SQ BID 02/07/20 02/07/20 Unknown History Flextouch (Nf)] Ticagrelor [Brilinta] 90 mg PO BID 02/07/20 02/07/20 Unknown History clonazePAM [ Klonopin] 0.25 mg PO BID PRN 02/07/20 02/07/20 Unknown History Active Meds: Active Medications Amiodarone HCl (Cordarone) 400 mg PO BID [facility] Last Admin: 02/13/20 21:25 Dose: 400 mg Documented by: Aspirin (Baby Aspirin) 81 mg PO DAILY [facility] Last Admin: 02/13/20 12:44 Dose: Not Given Documented by: Atorvastatin Calcium (Lipitor) 40 mg PO QHS [facility] Last Admin: 02/13/20 21:25 Dose: 40 mg Documented by: Clonazepam (Klonopin) 0.25 mg PO TID [facility] Last Admin: 02/13/20 20:23 Dose: 0.25 mg Documented by: Docusate Sodium (Colace) 100 mg PO BID [facility] Last Admin: 02/13/20 21:24 Dose: 100 mg Documented by: Famotidine (Pepcid) 20 mg PO [facility] Last Admin: 02/13/20 21:25 Dose: 20 mg Documented by: Ferrous Sulfate (Feosol) 325 mg PO DAILY [facility] Last Admin: 02/13/20 12:44 Dose: Not Given Documented by: Insulin Glargine (Lantus) 3 units SUB-Q BIDDIAB [facility] Last Admin: 02/13/20 19:00 Dose: 3 units Documented by: Risperidone (Risperdal) 2 mg PO BID [facility] Last Admin: 02/13/20 21:25 Dose: 2 mg Documented by: Ticagrelor (Brilinta) 90 mg PO BID [facility] Last Admin: 02/13/20 21:24 Dose: 90 mg Documented by: Ziprasidone (Geodon) 10 mg IM Q6H PRN PRN Reason: Agitation Last Admin: 02/11/20 14:02 Dose: 10 mg Documented by: Results - Results Labs/Vitals: Laboratory Last Values WBC 13.0 K/mm3 (4.5-11.0) H 02/07/20 20:10 RBC 3.55 M/mm3 (3.65-5.03) L 02/07/20 20:10 Hgb 10.0 gm/dl (11.8-15.2) L 02/07/20 20:10 Hct 31.1 % (35.5-45.6) L 02/07/20 20:10 MCV 88 fl (84-94) 02/07/20 20:10 MCH 28 pg (28-32) 02/07/20 20:10 MCHC 32 % (32-34) 02/07/20 20:10 RDW 19.1 % (13.2-15.2) H 02/07/20 20:10 Plt Count 253 K/mm3 (140-440) 02/07/20 20:10 Lymph % (Auto) 13.9 % (13.4-35.0) 02/07/20 20:10 [place] % (Auto) 5.3 % (0.0-7.3) 02/07/20 20:10 Eos % (Auto) 0.7 % (0.0-4.3) 02/07/20 20:10 Baso % (Auto) 0.4 % (0.0-1.8) 02/07/20 20:10 Lymph # 1.8 K/mm3 (1.2-5.4) 02/07/20 20:10 [place] # 0.7 K/mm3 (0.0-0.8) 02/07/20 20:10 Eos # 0.1 K/mm3 (0.0-0.4) 02/07/20 20:10 Baso # 0.0 K/mm3 (0.0-0.1) 02/07/20 20:10 Seg Neutrophils % 79.7 % (40.0-70.0) H 02/07/20 20:10 Seg Neutrophils # 10.4 K/mm3 (1.8-7.7) H 02/07/20 20:10 Sodium 137 mmol/L (137-145) 02/07/20 20:10 Potassium 4.2 mmol/L (3.6-5.0) 02/07/20 20:10 Chloride 101.6 mmol/L (98-107) 02/07/20 20:10 Carbon Dioxide 20 mmol/L (22-30) L 02/07/20 20:10 Anion Gap 20 mmol/L 02/07/20 20:10 BUN 27 mg/dL (9-20) H 02/07/20 20:10 Creatinine 2.0 mg/dL (0.8-1.5) H 02/07/20 20:10 Estimated GFR 33 ml/min 02/07/20 20:10 BUN/Creatinine Ratio 14 % 02/07/20 20:10 Glucose 132 mg/dL (75-100) H 02/07/20 20:10 POC Glucose 92 (70-105) 02/14/20 06:31 Hemoglobin A1c 5.1 % (4-6) 02/06/20 12:25 Calcium 9.2 mg/dL (8.4-10.2) 02/07/20 20:10 Total Bilirubin 0.40 mg/dL (0.1-1.2) 02/07/20 20:10 AST 28 units/L (5-40) 02/07/20 20:10 ALT 19 units/L (7-56) 02/07/20 20:10 Alkaline Phosphatase 79 units/L (35-129) 02/07/20 20:10 Total Protein 7.2 g/dL (6.3-8.2) 02/07/20 20:10 Albumin 3.1 g/dL (3.9-5) L 02/07/20 20:10 Albumin/Globulin Ratio 0.8 % 02/07/20 20:10 Triglycerides 131 mg/dL (2-149) 02/07/20 20:10 Cholesterol 119 mg/dL (50-199) 02/07/20 20:10 LDL Cholesterol Direct 49 mg/dL (50-130) L 02/07/20 20:10 HDL Cholesterol 50 mg/dL (40-59) 02/07/20 20:10 Cholesterol/HDL Ratio 2.38 % 02/07/20 20:10 TSH 5.280 mlU/mL (0.270-4.200) H 02/07/20 20:10 Last Vital Signs Temp 98.6 F 02/13/20 22:00 Pulse 82 02/13/20 22:00 Resp 18 02/13/20 22:00 BP 134/70 02/13/20 22:00 Pulse Ox 98 02/13/20 22:00
[2020-02-14] MEDS: INSULIN GLARGINE 100 UNITS/ML SUB-Q SCH ×2 (07:22→17:55)
[2020-02-14] MEDS: clonazePAM 0.5 MG TAB PO SCH ×3 (08:37→20:44)
[2020-02-14] MEDS: FERROUS SULFATE 325 MG TAB PO SCH (09:37)
[2020-02-14] MEDS: DOCUSATE SODIUM 100 MG CAP PO SCH ×2 (09:37→22:05)
[2020-02-14] MEDS: AMIODARONE 200 MG TAB PO SCH ×2 (09:37→22:03)
[2020-02-14] MEDS: TICAGRELOR 90 MG TAB PO SCH ×2 (09:37→22:03)
[2020-02-14] MEDS: ASPIRIN 81 MG TAB CHEW PO SCH (09:37)
[2020-02-14] MEDS: risperiDONE 1 MG TAB PO SCH ×2 (09:37→22:04)
[2020-02-14] MEDS: FAMOTIDINE 20 MG TAB PO SCH (22:02)
--- NOTE | 2020-02-15 07:09 | Progress Note ---
Subjective Date of service: 02/15/20 Principal diagnosis: Dementia w/Behavioral Disturbance Subjective Comment: Psych Nurse note: Patient spend his day sitting in a valente chair in the activity room, pt is alert oriented to name, calm and cooperative. Compliant with medications. He is interacting with a male peer at times. eat 100% breakfast and lunch, refused dinner, currently in bed sleeping, no distress noted will continue to monitor for safety. Psych Progress HPI Patient seen in day room seated with his friend, another patient in facility. Says he is not happy his friend leaving soon, but i assured patient he would also be leaving. Patient says his good, reports not liking to miss meals when asked why he didnt eat dinner. Endorses good sleepy hygiene and appetite. Reason for continued inpatient treatment: No reported behavioral disturbances confusion or disorganization and stable mood, will start planning facility discharge. REVIEW OF SYSTEMS Constitutional: Negative for weight loss ENT: Negative for stridor Respiratory: Negative for cough or hemoptysis All other systems reviewed and are negative MENTAL STATUS EXAMINATION General Appearance: Dressed appropriately. Behavior: calm, cooperative Mood: "so far so good" Affect: Congruent with stated mood Speech: Low tone, and slow pace, garbled. difficulty to understand Thought Process: Unimpaired Suicidal Ideation: Denies Homicidal Ideation: Denies Hallucinations: Denies Delusions: None elicited Insight and Judgment: Limited Memory/Cognition: Impaired ASSESSMENT Schizoaffective Disorder Treatment Plan Patient will be admitted for inpatient psychiatric evaluation, medication adjustment and close monitoring The patient's behavior, mood, sleep and appetite will be closely monitored. Patient will be enrolled in individual and group therapeutic sessions and encouraged to attend. Patient will be provided with a safe and structured environment. Patient's physical health needs will be addressed by the Hospitalist. Hospitalist Consulted Labs including CBC, CMP, Lipid profile and Hemoglobin A1C ordered Social Assessment will be completed and the Sales And Leasing Agent will work with patient and family to ensure a suitable and safe disposition Medication adjustment will be made as clinically indicated Usual Wellness Sabianist/Preservation: Klonopin now 0.25 TID Estimated period of time patient will need to remain in the hospital: [2] Plan for post-hospital care: [Outpatient ] Medications and Allergies Allergies Allergy/AdvReac Type Severity Reaction Status Date / Time meperidine [From Demerol] Allergy Unknown Verified 02/06/20 12:23 sulfamethoxazole Allergy Unknown Verified 02/06/20 12:23 [From Bactrim] trimethoprim [From Bactrim] Allergy Unknown Verified 02/06/20 12:23 Home Medications Medication Instructions Recorded Confirmed Last Taken Type Amiodarone [Cordarone 200 MG TAB] 400 mg PO BID 02/07/20 02/07/20 Unknown History Aspirin [Aspirin BABY CHEW TAB] 81 mg PO DAILY 02/07/20 02/07/20 Unknown History Atorvastatin 40 mg PO HS 02/07/20 02/07/20 Unknown History Docusate Sodium [Colace CAP] 100 mg PO BID 02/07/20 02/07/20 Unknown History Famotidine [Pepcid] 20 mg PO HS 02/07/20 02/07/20 Unknown History Ferrous Sulfate [Iron 325 MG] 325 mg PO DAILY 02/07/20 02/07/20 Unknown History Insulin Detemir (Nf) [Levemir 3 units SQ BID 02/07/20 02/07/20 Unknown History Flextouch (Nf)] Ticagrelor [Brilinta] 90 mg PO BID 02/07/20 02/07/20 Unknown History clonazePAM [ Klonopin] 0.25 mg PO BID PRN 02/07/20 02/07/20 Unknown History Active Meds: Active Medications Amiodarone HCl (Cordarone) 400 mg PO BID [facility] Last Admin: 02/14/20 22:03 Dose: 400 mg Documented by: Aspirin (Baby Aspirin) 81 mg PO DAILY [facility] Last Admin: 02/14/20 09:37 Dose: 81 mg Documented by: Atorvastatin Calcium (Lipitor) 40 mg PO QHS [facility] Last Admin: 02/14/20 22:04 Dose: 40 mg Documented by: Clonazepam (Klonopin) 0.25 mg PO TID [facility] Last Admin: 02/14/20 20:44 Dose: 0.25 mg Documented by: Docusate Sodium (Colace) 100 mg PO BID [facility] Last Admin: 02/14/20 22:05 Dose: 100 mg Documented by: Famotidine (Pepcid) 20 mg PO [facility] Last Admin: 02/14/20 22:02 Dose: 20 mg Documented by: Ferrous Sulfate (Feosol) 325 mg PO DAILY [facility] Last Admin: 02/14/20 09:37 Dose: 325 mg Documented by: Insulin Glargine (Lantus) 3 units SUB-Q BIDDIAB [facility] Last Admin: 02/14/20 17:55 Dose: Not Given Documented by: Risperidone (Risperdal) 2 mg PO BID [facility] Last Admin: 02/14/20 22:04 Dose: 2 mg Documented by: Ticagrelor (Brilinta) 90 mg PO BID [facility] Last Admin: 02/14/20 22:03 Dose: 90 mg Documented by: Ziprasidone (Geodon) 10 mg IM Q6H PRN PRN Reason: Agitation Last Admin: 02/11/20 14:02 Dose: 10 mg Documented by: Results - Results Labs/Vitals: Laboratory Last Values WBC 13.0 K/mm3 (4.5-11.0) H 02/07/20 20:10 RBC 3.55 M/mm3 (3.65-5.03) L 02/07/20 20:10 Hgb 10.0 gm/dl (11.8-15.2) L 02/07/20 20:10 Hct 31.1 % (35.5-45.6) L 02/07/20 20:10 MCV 88 fl (84-94) 02/07/20 20:10 MCH 28 pg (28-32) 02/07/20 20:10 MCHC 32 % (32-34) 02/07/20 20:10 RDW 19.1 % (13.2-15.2) H 02/07/20 20:10 Plt Count 253 K/mm3 (140-440) 02/07/20 20:10 Lymph % (Auto) 13.9 % (13.4-35.0) 02/07/20 20:10 [place] % (Auto) 5.3 % (0.0-7.3) 02/07/20 20:10 Eos % (Auto) 0.7 % (0.0-4.3) 02/07/20 20:10 Baso % (Auto) 0.4 % (0.0-1.8) 02/07/20 20:10 Lymph # 1.8 K/mm3 (1.2-5.4) 02/07/20 20:10 [place] # 0.7 K/mm3 (0.0-0.8) 02/07/20 20:10 Eos # 0.1 K/mm3 (0.0-0.4) 02/07/20 20:10 Baso # 0.0 K/mm3 (0.0-0.1) 02/07/20 20:10 Seg Neutrophils % 79.7 % (40.0-70.0) H 02/07/20 20:10 Seg Neutrophils # 10.4 K/mm3 (1.8-7.7) H 02/07/20 20:10 Sodium 137 mmol/L (137-145) 02/07/20 20:10 Potassium 4.2 mmol/L (3.6-5.0) 02/07/20 20:10 Chloride 101.6 mmol/L (98-107) 02/07/20 20:10 Carbon Dioxide 20 mmol/L (22-30) L 02/07/20 20:10 Anion Gap 20 mmol/L 02/07/20 20:10 BUN 27 mg/dL (9-20) H 02/07/20 20:10 Creatinine 2.0 mg/dL (0.8-1.5) H 02/07/20 20:10 Estimated GFR 33 ml/min 02/07/20 20:10 BUN/Creatinine Ratio 14 % 02/07/20 20:10 Glucose 132 mg/dL (75-100) H 02/07/20 20:10 POC Glucose 90 (70-105) 02/15/20 07:08 Hemoglobin A1c 5.1 % (4-6) 02/06/20 12:25 Calcium 9.2 mg/dL (8.4-10.2) 02/07/20 20:10 Total Bilirubin 0.40 mg/dL (0.1-1.2) 02/07/20 20:10 AST 28 units/L (5-40) 02/07/20 20:10 ALT 19 units/L (7-56) 02/07/20 20:10 Alkaline Phosphatase 79 units/L (35-129) 02/07/20 20:10 Total Protein 7.2 g/dL (6.3-8.2) 02/07/20 20:10 Albumin 3.1 g/dL (3.9-5) L 02/07/20 20:10 Albumin/Globulin Ratio 0.8 % 02/07/20 20:10 Triglycerides 131 mg/dL (2-149) 02/07/20 20:10 Cholesterol 119 mg/dL (50-199) 02/07/20 20:10 LDL Cholesterol Direct 49 mg/dL (50-130) L 02/07/20 20:10 HDL Cholesterol 50 mg/dL (40-59) 02/07/20 20:10 Cholesterol/HDL Ratio 2.38 % 02/07/20 20:10 TSH 5.280 mlU/mL (0.270-4.200) H 02/07/20 20:10 Last Vital Signs Temp 98.3 F 02/14/20 08:34 Pulse 71 02/14/20 08:34 Resp 18 02/14/20 08:34 BP 134/67 02/14/20 08:34 Pulse Ox 99 02/14/20 08:34
[2020-02-15] MEDS: INSULIN GLARGINE 100 UNITS/ML SUB-Q SCH ×2 (07:12→16:53)
[2020-02-15] MEDS: clonazePAM 0.5 MG TAB PO SCH ×3 (07:49→21:34)
[2020-02-15] MEDS: TICAGRELOR 90 MG TAB PO SCH ×2 (08:59→22:48)
[2020-02-15] MEDS: AMIODARONE 200 MG TAB PO SCH ×2 (08:59→21:35)
[2020-02-15] MEDS: risperiDONE 1 MG TAB PO SCH ×2 (08:59→21:34)
[2020-02-15] MEDS: FERROUS SULFATE 325 MG TAB PO SCH (08:59)
[2020-02-15] MEDS: ASPIRIN 81 MG TAB CHEW PO SCH (08:59)
[2020-02-15] MEDS: DOCUSATE SODIUM 100 MG CAP PO SCH ×2 (08:59→21:35)
[2020-02-15] MEDS: FAMOTIDINE 20 MG TAB PO SCH (21:35)
[2020-02-16] MEDS: ACETAMINOPHEN 325 MG TAB PO PRN ×2 (05:10→21:12)
--- NOTE | 2020-02-16 07:19 | Progress Note ---
Subjective Date of service: 02/16/20 Principal diagnosis: Dementia w/Behavioral Disturbance Subjective Comment: Psych Nurse note: Patient's thought process was clearer this evening. He denies si/hi/ah/vh. He was medication compliant. Patient went to sleep around 0030. Will continue to monitor patient for safety. Psych Progress HPI Patient seen in breakfast room, been fed his meal. Reports he is doing good and would like some water, I gave patient water, he responded with a thumbs up. I informed patient about possible discharge tomorrow, patient was excited. Patient also states he would like to have syrup with his grits, asked me if have tried it before, that its really good and we both laughed. Reason for continued inpatient treatment: No reported behavioral disturbances confusion or disorganization and stable mood, will start planning facility discharge, anticipated tomorrow. REVIEW OF SYSTEMS Constitutional: Negative for weight loss ENT: Negative for stridor Respiratory: Negative for cough or hemoptysis All other systems reviewed and are negative MENTAL STATUS EXAMINATION General Appearance: Dressed appropriately. Behavior: calm, cooperative Mood: "good" Affect: Congruent with stated mood Speech: Low tone, and slow pace, garbled. difficulty to understand Thought Process: Unimpaired Suicidal Ideation: Denies Homicidal Ideation: Denies Hallucinations: Denies Delusions: None elicited Insight and Judgment: Limited Memory/Cognition: Impaired ASSESSMENT Schizoaffective Disorder Treatment Plan Patient will be admitted for inpatient psychiatric evaluation, medication adjustment and close monitoring The patient's behavior, mood, sleep and appetite will be closely monitored. Patient will be enrolled in individual and group therapeutic sessions and encouraged to attend. Patient will be provided with a safe and structured environment. Patient's physical health needs will be addressed by the Hospitalist. Hospitalist Consulted Labs including CBC, CMP, Lipid profile and Hemoglobin A1C ordered Social Assessment will be completed and the Bonded Strand Operator will work with patient and family to ensure a suitable and safe disposition Medication adjustment will be made as clinically indicated Usual Wellness Roman Catholic/Preservation: Klonopin now 0.25 TID Estimated period of time patient will need to remain in the hospital: [1] Plan for post-hospital care: [Outpatient ] Medications and Allergies Allergies Allergy/AdvReac Type Severity Reaction Status Date / Time meperidine [From Demerol] Allergy Unknown Verified 02/06/20 12:23 sulfamethoxazole Allergy Unknown Verified 02/06/20 12:23 [From Bactrim] trimethoprim [From Bactrim] Allergy Unknown Verified 02/06/20 12:23 Home Medications Medication Instructions Recorded Confirmed Last Taken Type Amiodarone [Cordarone 200 MG TAB] 400 mg PO BID 02/07/20 02/07/20 Unknown History Aspirin [Aspirin BABY CHEW TAB] 81 mg PO DAILY 02/07/20 02/07/20 Unknown History Atorvastatin 40 mg PO HS 02/07/20 02/07/20 Unknown History Docusate Sodium [Colace CAP] 100 mg PO BID 02/07/20 02/07/20 Unknown History Famotidine [Pepcid] 20 mg PO HS 02/07/20 02/07/20 Unknown History Ferrous Sulfate [Iron 325 MG] 325 mg PO DAILY 02/07/20 02/07/20 Unknown History Insulin Detemir (Nf) [Levemir 3 units SQ BID 02/07/20 02/07/20 Unknown History Flextouch (Nf)] Ticagrelor [Brilinta] 90 mg PO BID 02/07/20 02/07/20 Unknown History clonazePAM [ Klonopin] 0.25 mg PO BID PRN 02/07/20 02/07/20 Unknown History Active Meds: Active Medications Acetaminophen (Tylenol) 650 mg PO Q6H PRN PRN Reason: Pain, Mild (1-3) Last Admin: 02/16/20 05:10 Dose: 650 mg Documented by: Amiodarone HCl (Cordarone) 400 mg PO BID [facility] Last Admin: 02/15/20 21:35 Dose: 400 mg Documented by: Aspirin (Baby Aspirin) 81 mg PO DAILY [facility] Last Admin: 02/15/20 08:59 Dose: 81 mg Documented by: Atorvastatin Calcium (Lipitor) 40 mg PO QHS [facility] Last Admin: 02/15/20 21:34 Dose: 40 mg Documented by: Clonazepam (Klonopin) 0.25 mg PO TID [facility] Last Admin: 02/15/20 21:34 Dose: 0.25 mg Documented by: Docusate Sodium (Colace) 100 mg PO BID [facility] Last Admin: 02/15/20 21:35 Dose: 100 mg Documented by: Famotidine (Pepcid) 20 mg PO [facility] Last Admin: 02/15/20 21:35 Dose: 20 mg Documented by: Ferrous Sulfate (Feosol) 325 mg PO DAILY [facility] Last Admin: 02/15/20 08:59 Dose: 325 mg Documented by: Insulin Glargine (Lantus) 3 units SUB-Q BIDDIAB [facility] Last Admin: 02/15/20 16:53 Dose: 3 units Documented by: Risperidone (Risperdal) 2 mg PO BID [facility] Last Admin: 02/15/20 21:34 Dose: 2 mg Documented by: Ticagrelor (Brilinta) 90 mg PO BID [facility] Last Admin: 02/15/20 22:48 Dose: 90 mg Documented by: Ziprasidone (Geodon) 10 mg IM Q6H PRN PRN Reason: Agitation Last Admin: 02/11/20 14:02 Dose: 10 mg Documented by: Results - Results Labs/Vitals: Laboratory Last Values WBC 13.0 K/mm3 (4.5-11.0) H 02/07/20 20:10 RBC 3.55 M/mm3 (3.65-5.03) L 02/07/20 20:10 Hgb 10.0 gm/dl (11.8-15.2) L 02/07/20 20:10 Hct 31.1 % (35.5-45.6) L 02/07/20 20:10 MCV 88 fl (84-94) 02/07/20 20:10 MCH 28 pg (28-32) 02/07/20 20:10 MCHC 32 % (32-34) 02/07/20 20:10 RDW 19.1 % (13.2-15.2) H 02/07/20 20:10 Plt Count 253 K/mm3 (140-440) 02/07/20 20:10 Lymph % (Auto) 13.9 % (13.4-35.0) 02/07/20 20:10 [place] % (Auto) 5.3 % (0.0-7.3) 02/07/20 20:10 Eos % (Auto) 0.7 % (0.0-4.3) 02/07/20 20:10 Baso % (Auto) 0.4 % (0.0-1.8) 02/07/20 20:10 Lymph # 1.8 K/mm3 (1.2-5.4) 02/07/20 20:10 [place] # 0.7 K/mm3 (0.0-0.8) 02/07/20 20:10 Eos # 0.1 K/mm3 (0.0-0.4) 02/07/20 20:10 Baso # 0.0 K/mm3 (0.0-0.1) 02/07/20 20:10 Seg Neutrophils % 79.7 % (40.0-70.0) H 02/07/20 20:10 Seg Neutrophils # 10.4 K/mm3 (1.8-7.7) H 02/07/20 20:10 Sodium 137 mmol/L (137-145) 02/07/20 20:10 Potassium 4.2 mmol/L (3.6-5.0) 02/07/20 20:10 Chloride 101.6 mmol/L (98-107) 02/07/20 20:10 Carbon Dioxide 20 mmol/L (22-30) L 02/07/20 20:10 Anion Gap 20 mmol/L 02/07/20 20:10 BUN 27 mg/dL (9-20) H 02/07/20 20:10 Creatinine 2.0 mg/dL (0.8-1.5) H 02/07/20 20:10 Estimated GFR 33 ml/min 02/07/20 20:10 BUN/Creatinine Ratio 14 % 02/07/20 20:10 Glucose 132 mg/dL (75-100) H 02/07/20 20:10 POC Glucose 96 (70-105) 02/15/20 16:36 Hemoglobin A1c 5.1 % (4-6) 02/06/20 12:25 Calcium 9.2 mg/dL (8.4-10.2) 02/07/20 20:10 Total Bilirubin 0.40 mg/dL (0.1-1.2) 02/07/20 20:10 AST 28 units/L (5-40) 02/07/20 20:10 ALT 19 units/L (7-56) 02/07/20 20:10 Alkaline Phosphatase 79 units/L (35-129) 02/07/20 20:10 Total Protein 7.2 g/dL (6.3-8.2) 02/07/20 20:10 Albumin 3.1 g/dL (3.9-5) L 02/07/20 20:10 Albumin/Globulin Ratio 0.8 % 02/07/20 20:10 Triglycerides 131 mg/dL (2-149) 02/07/20 20:10 Cholesterol 119 mg/dL (50-199) 02/07/20 20:10 LDL Cholesterol Direct 49 mg/dL (50-130) L 02/07/20 20:10 HDL Cholesterol 50 mg/dL (40-59) 02/07/20 20:10 Cholesterol/HDL Ratio 2.38 % 02/07/20 20:10 TSH 5.280 mlU/mL (0.270-4.200) H 02/07/20 20:10 Last Vital Signs Temp 97.5 F L 02/15/20 07:21 Pulse 90 02/15/20 23:51 Resp 18 02/16/20 05:10 BP 136/63 02/15/20 23:51 Pulse Ox 96 02/15/20 23:51
[2020-02-16] MEDS: FERROUS SULFATE 325 MG TAB PO SCH (09:41)
[2020-02-16] MEDS: clonazePAM 0.5 MG TAB PO SCH ×3 (09:41→21:55)
[2020-02-16] MEDS: ASPIRIN 81 MG TAB CHEW PO SCH (09:41)
[2020-02-16] MEDS: INSULIN GLARGINE 100 UNITS/ML SUB-Q SCH ×2 (09:42→17:11)
[2020-02-16] MEDS: AMIODARONE 200 MG TAB PO SCH ×2 (09:42→21:13)
[2020-02-16] MEDS: DOCUSATE SODIUM 100 MG CAP PO SCH ×2 (09:42→21:13)
[2020-02-16] MEDS: risperiDONE 1 MG TAB PO SCH ×2 (09:42→21:13)
[2020-02-16] MEDS: TICAGRELOR 90 MG TAB PO SCH ×2 (10:45→21:13)
[2020-02-16] MEDS: FAMOTIDINE 20 MG TAB PO SCH (21:13)
--- NOTE | 2020-02-17 07:47 | Progress Note ---
Subjective Date of service: 02/17/20 Principal diagnosis: Dementia w/Behavioral Disturbance Subjective Comment: Psych Nurse note: pt is medication compliant, consumed about 80% of snack, medication given crushed in apple sauce, alert and oriented to person and place, speech is slurred, pt has been calm and cooperative, no agitation, no distress noted, will continue to monitor for safety. Psych Progress HPI Patient reports feeling great, appetite increased and eating very well. No sleep disturbances no AVH. Incident: Nurse reports Elevated temp, pt given tylenol. CBC shows WBC of 19k. Dr. Ortiz (hospitalist) evaluated pt. Recommending outpt with medications. Reason for continued inpatient treatment: No reported behavioral disturbances confusion or disorganization and stable mood. To be discharged from psych today. REVIEW OF SYSTEMS Constitutional: Negative for weight loss ENT: Negative for stridor Respiratory: Negative for cough or hemoptysis All other systems reviewed and are negative MENTAL STATUS EXAMINATION General Appearance: Dressed appropriately. Behavior: calm, cooperative Mood: "good" Affect: Congruent with stated mood Speech: Low tone, and slow pace, garbled. difficulty to understand Thought Process: Unimpaired Suicidal Ideation: Denies Homicidal Ideation: Denies Hallucinations: Denies Delusions: None elicited Insight and Judgment: Limited Memory/Cognition: Impaired ASSESSMENT Schizoaffective Disorder Treatment Plan Patient will be admitted for inpatient psychiatric evaluation, medication adjustment and close monitoring The patient's behavior, mood, sleep and appetite will be closely monitored. Patient will be enrolled in individual and group therapeutic sessions and encouraged to attend. Patient will be provided with a safe and structured environment. Patient's physical health needs will be addressed by the Hospitalist. Hospitalist Consulted Labs including CBC, CMP, Lipid profile and Hemoglobin A1C ordered Social Assessment will be completed and the Chemical Etching Processor will work with patient and family to ensure a suitable and safe disposition Medication adjustment will be made as clinically indicated Usual Wellness Confucianist/Preservation: Klonopin now 0.25 TID Estimated period of time patient will need to remain in the hospital: [0] Plan for post-hospital care: [Outpatient ] Medications and Allergies Allergies Allergy/AdvReac Type Severity Reaction Status Date / Time meperidine [From Demerol] Allergy Unknown Verified 02/06/20 12:23 sulfamethoxazole Allergy Unknown Verified 02/06/20 12:23 [From Bactrim] trimethoprim [From Bactrim] Allergy Unknown Verified 02/06/20 12:23 Home Medications Medication Instructions Recorded Confirmed Last Taken Type Amiodarone [Cordarone 200 MG TAB] 400 mg PO BID 02/07/20 02/07/20 Unknown History Aspirin [Aspirin BABY CHEW TAB] 81 mg PO DAILY 02/07/20 02/07/20 Unknown History Atorvastatin 40 mg PO HS 02/07/20 02/07/20 Unknown History Docusate Sodium [Colace CAP] 100 mg PO BID 02/07/20 02/07/20 Unknown History Famotidine [Pepcid] 20 mg PO HS 02/07/20 02/07/20 Unknown History Ferrous Sulfate [Iron 325 MG] 325 mg PO DAILY 02/07/20 02/07/20 Unknown History Insulin Detemir (Nf) [Levemir 3 units SQ BID 02/07/20 02/07/20 Unknown History Flextouch (Nf)] Ticagrelor [Brilinta] 90 mg PO BID 02/07/20 02/07/20 Unknown History clonazePAM [ Klonopin] 0.25 mg PO BID PRN 02/07/20 02/07/20 Unknown History Active Meds: Active Medications Acetaminophen (Tylenol) 650 mg PO Q6H PRN PRN Reason: Pain, Mild (1-3) Last Admin: 02/16/20 21:12 Dose: 650 mg Documented by: Amiodarone HCl (Cordarone) 400 mg PO BID [facility] Last Admin: 02/16/20 21:13 Dose: 400 mg Documented by: Aspirin (Baby Aspirin) 81 mg PO DAILY [facility] Last Admin: 02/16/20 09:41 Dose: 81 mg Documented by: Atorvastatin Calcium (Lipitor) 40 mg PO QHS [facility] Last Admin: 02/16/20 21:13 Dose: 40 mg Documented by: Clonazepam (Klonopin) 0.25 mg PO TID [facility] Last Admin: 02/16/20 21:55 Dose: 0.25 mg Documented by: Docusate Sodium (Colace) 100 mg PO BID [facility] Last Admin: 02/16/20 21:13 Dose: 100 mg Documented by: Famotidine (Pepcid) 20 mg PO [facility] Last Admin: 02/16/20 21:13 Dose: 20 mg Documented by: Ferrous Sulfate (Feosol) 325 mg PO DAILY [facility] Last Admin: 02/16/20 09:41 Dose: 325 mg Documented by: Insulin Glargine (Lantus) 3 units SUB-Q BIDDIAB [facility] Last Admin: 02/16/20 17:11 Dose: 3 units Documented by: Risperidone (Risperdal) 2 mg PO BID [facility] Last Admin: 02/16/20 21:13 Dose: 2 mg Documented by: Ticagrelor (Brilinta) 90 mg PO BID [facility] Last Admin: 02/16/20 21:13 Dose: 90 mg Documented by: Ziprasidone (Geodon) 10 mg IM Q6H PRN PRN Reason: Agitation Last Admin: 02/11/20 14:02 Dose: 10 mg Documented by: Results - Results Labs/Vitals: Laboratory Last Values WBC 13.0 K/mm3 (4.5-11.0) H 02/07/20 20:10 RBC 3.55 M/mm3 (3.65-5.03) L 02/07/20 20:10 Hgb 10.0 gm/dl (11.8-15.2) L 02/07/20 20:10 Hct 31.1 % (35.5-45.6) L 02/07/20 20:10 MCV 88 fl (84-94) 02/07/20 20:10 MCH 28 pg (28-32) 02/07/20 20:10 MCHC 32 % (32-34) 02/07/20 20:10 RDW 19.1 % (13.2-15.2) H 02/07/20 20:10 Plt Count 253 K/mm3 (140-440) 02/07/20 20:10 Lymph % (Auto) 13.9 % (13.4-35.0) 02/07/20 20:10 [place] % (Auto) 5.3 % (0.0-7.3) 02/07/20 20:10 Eos % (Auto) 0.7 % (0.0-4.3) 02/07/20 20:10 Baso % (Auto) 0.4 % (0.0-1.8) 02/07/20 20:10 Lymph # 1.8 K/mm3 (1.2-5.4) 02/07/20 20:10 [place] # 0.7 K/mm3 (0.0-0.8) 02/07/20 20:10 Eos # 0.1 K/mm3 (0.0-0.4) 02/07/20 20:10 Baso # 0.0 K/mm3 (0.0-0.1) 02/07/20 20:10 Seg Neutrophils % 79.7 % (40.0-70.0) H 02/07/20 20:10 Seg Neutrophils # 10.4 K/mm3 (1.8-7.7) H 02/07/20 20:10 Sodium 137 mmol/L (137-145) 02/07/20 20:10 Potassium 4.2 mmol/L (3.6-5.0) 02/07/20 20:10 Chloride 101.6 mmol/L (98-107) 02/07/20 20:10 Carbon Dioxide 20 mmol/L (22-30) L 02/07/20 20:10 Anion Gap 20 mmol/L 02/07/20 20:10 BUN 27 mg/dL (9-20) H 02/07/20 20:10 Creatinine 2.0 mg/dL (0.8-1.5) H 02/07/20 20:10 Estimated GFR 33 ml/min 02/07/20 20:10 BUN/Creatinine Ratio 14 % 02/07/20 20:10 Glucose 132 mg/dL (75-100) H 02/07/20 20:10 POC Glucose 99 (70-105) 02/17/20 06:37 Hemoglobin A1c 5.1 % (4-6) 02/06/20 12:25 Calcium 9.2 mg/dL (8.4-10.2) 02/07/20 20:10 Total Bilirubin 0.40 mg/dL (0.1-1.2) 02/07/20 20:10 AST 28 units/L (5-40) 02/07/20 20:10 ALT 19 units/L (7-56) 02/07/20 20:10 Alkaline Phosphatase 79 units/L (35-129) 02/07/20 20:10 Total Protein 7.2 g/dL (6.3-8.2) 02/07/20 20:10 Albumin 3.1 g/dL (3.9-5) L 02/07/20 20:10 Albumin/Globulin Ratio 0.8 % 02/07/20 20:10 Triglycerides 131 mg/dL (2-149) 02/07/20 20:10 Cholesterol 119 mg/dL (50-199) 02/07/20 20:10 LDL Cholesterol Direct 49 mg/dL (50-130) L 02/07/20 20:10 HDL Cholesterol 50 mg/dL (40-59) 02/07/20 20:10 Cholesterol/HDL Ratio 2.38 % 02/07/20 20:10 TSH 5.280 mlU/mL (0.270-4.200) H 02/07/20 20:10 Last Vital Signs Temp 100.7 F H 02/16/20 22:00 Pulse 91 H 02/16/20 22:00 Resp 20 02/16/20 22:00 BP 128/61 02/16/20 22:00 Pulse Ox 100 02/16/20 22:00
[2020-02-17 08:58] LABS: Basophils # (Auto) 0.1 K/mm3 (0.0-0.1); Basophils % (Auto) 0.3 % (0.0-1.8); Eosinophils # (Auto) 0.2 K/mm3 (0.0-0.4); Eosinophils % (Auto) 0.9 % (0.0-4.3); Hematocrit 31.2 % (35.5-45.6); Hemoglobin 9.7 gm/dl (11.8-15.2); Lymphocytes # (Auto) 1.4 K/mm3 (1.2-5.4); Lymphocytes % (Auto) 7.2 % (13.4-35.0); Mean Corpuscular HGB Conc 31 % (32-34); Mean Corpuscular Volume 90 fl (84-94); Monocytes # (Auto) 0.9 K/mm3 (0.0-0.8); Monocytes % (Auto) 4.4 % (0.0-7.3); Platelet Count 281 K/mm3 (140-440); Red Blood Count 3.45 M/mm3 (3.65-5.03); Red Cell Distribution Width 19.4 % (13.2-15.2)
--- NOTE | 2020-02-17 10:13 | Progress Note ---
Assessment and Plan -- Febrile illness Spiked temperature up to 100.7 last night will wait for UA and CXR also order blood cx --Schizoaffective disorder; --Suicidal behavior Management per psych --Hypertension; moderate control Continue current antihypertensives --History of CVA; with residual weakness and dysphagia Supportive care, continue diet per speech recommendation --Coronary artery disease; continue home medications --Dyslipidemia; continue statin --DVT prophylaxis; SCDs while resting --Full CODE STATUS Physical exam: GENERAL: well-developed elderly white male sitting in a chair in the recreation area. HEENT: Normocephalic. Atraumatic. No conjunctival congestion or icterus. Patient has moist mucous membranes. NECK: Supple. Trachea midline. CHEST/LUNGS: Clear to auscultated bilaterally, breathing nonlabored. Did not appreciate any wheezes crackles or rhonchi. HEART/CARDIOVASCULAR: Regular in rate and rhythm. S1 and S2 positive. ABDOMEN: Abdomen is soft, nontender. Patient has normal bowel sounds. SKIN: There is no rash. Warm and dry. NEURO: No focal motor deficit. Follows command. MUSCULOSKELETAL: No joint effusion or tenderness. EXTRIMITY: No edema, no cyanosis or clubbing. PSYCH: Cooperative. Subjective Date of service: 02/17/20 Principal diagnosis: Dementia w/Behavioral Disturbance Interval history: Patient seen and examined. Medical records and medication list reviewed. No acute event overnight noted by the RN. Patient denies any chest pain or difficulty breathing. Patient is tolerating diet. Discussed plan of care at bedside with patient's RN and with psychiatrist/primary MD. Objective - Labs CBC & Chem 7: 02/18/20 10:51 02/18/20 10:51 Labs: Abnormal lab results 02/16/20 02/16/20 02/17/20 Range/Units 11:59 20:27 08:41 WBC 19.5 H (4.5-11.0) K/mm3 RBC 3.45 L (3.65-5.03) M/mm3 Hgb 9.7 L (11.8-15.2) gm/dl Hct 31.2 L (35.5-45.6) % MCHC 31 L (32-34) % RDW 19.4 H (13.2-15.2) % Lymph % (Auto) 7.2 L (13.4-35.0) % [place] # 0.9 H (0.0-0.8) K/mm3 Seg Neutrophils % 87.2 H (40.0-70.0) % Seg Neutrophils # 17.0 H (1.8-7.7) K/mm3 POC Glucose 143 H 141 H (70-105)
[2020-02-17] MEDS: AMIODARONE 200 MG TAB PO SCH ×2 (10:22→21:57)
[2020-02-17] MEDS: FERROUS SULFATE 325 MG TAB PO SCH (10:22)
[2020-02-17] MEDS: TICAGRELOR 90 MG TAB PO SCH ×2 (10:23→21:58)
[2020-02-17] MEDS: DOCUSATE SODIUM 100 MG CAP PO SCH ×2 (10:23→21:57)
[2020-02-17] MEDS: ASPIRIN 81 MG TAB CHEW PO SCH (10:23)
[2020-02-17] MEDS: INSULIN GLARGINE 100 UNITS/ML SUB-Q SCH ×2 (10:24→19:16)
[2020-02-17] MEDS: clonazePAM 0.5 MG TAB PO SCH ×3 (10:25→21:56)
[2020-02-17] MEDS: risperiDONE 1 MG TAB PO SCH ×2 (11:02→21:56)
--- NOTE | 2020-02-17 12:44 | XRay Report ---
CHEST 1 VIEW INDICATION: Fever, rule out aspiration Pneumonia. COMPARISON: 02/09/2020 FINDINGS: Support devices: None. Heart: Within normal limits. Lungs/Pleura: Subtle infiltrate has developed at the left lung base. The remainder of the lungs are c lear. No large pleural effusion or pneumothorax. Additional findings: None. IMPRESSION: Left lower lobe infiltrate concerning for pneumonia. Signer Name: Kennedy Vázquez Jr, MD Signed: 02/17/2020 12:39 PM Workstation Name: [id number]
[2020-02-17] MEDS ORDERED: levoFLOXacin 750 MG TAB PO SCH ×2 (14:00→16:00)
[2020-02-17] MEDS: IPRATROPIUM/ALBUTEROL SULFATE 3 ML AMPUL.NEB IH SCH ×2 (17:26→21:00)
[2020-02-17] MEDS ORDERED: ALBUTEROL 2.5 MG/3 ML NEBU IH PRN (20:56)
[2020-02-17] MEDS: FAMOTIDINE 20 MG TAB PO SCH (21:57)
[2020-02-18 00:08] VITALS: BP 147/58
--- NOTE | 2020-02-18 07:11 | Progress Note ---
Subjective Date of service: 02/18/20 Principal diagnosis: Dementia w/Behavioral Disturbance Subjective Comment: Psych Nurse note: Pt was received in activity room calm and quiet. Offers no complaints at this time Staff will continue to monitor for safety Psych Progress HPI Patient eating well, no complaints and no behavioral disturbances. Plan to discharge when Covid test is resulted. Reason for continued inpatient treatment: No reported behavioral disturbances confusion or disorganization and stable mood. If Covid Negative, pt to be discharged. REVIEW OF SYSTEMS Constitutional: Negative for weight loss ENT: Negative for stridor Respiratory: Negative for cough or hemoptysis All other systems reviewed and are negative MENTAL STATUS EXAMINATION General Appearance: Dressed appropriately. Behavior: calm, cooperative Mood: "good" Affect: Congruent with stated mood Speech: Low tone, and slow pace, garbled. difficulty to understand Thought Process: Unimpaired Suicidal Ideation: Denies Homicidal Ideation: Denies Hallucinations: Denies Delusions: None elicited Insight and Judgment: Limited Memory/Cognition: Impaired ASSESSMENT Schizoaffective Disorder Treatment Plan Patient will be admitted for inpatient psychiatric evaluation, medication adjustment and close monitoring The patient's behavior, mood, sleep and appetite will be closely monitored. Patient will be enrolled in individual and group therapeutic sessions and encouraged to attend. Patient will be provided with a safe and structured environment. Patient's physical health needs will be addressed by the Hospitalist. Hospitalist Consulted Labs including CBC, CMP, Lipid profile and Hemoglobin A1C ordered Social Assessment will be completed and the Loadmaster will work with patient and family to ensure a suitable and safe disposition Medication adjustment will be made as clinically indicated Usual Wellness Confucianism/Preservation: Klonopin now 0.25 TID Estimated period of time patient will need to remain in the hospital: [0] Plan for post-hospital care: [Outpatient ] Medications and Allergies Allergies Allergy/AdvReac Type Severity Reaction Status Date / Time meperidine [From Demerol] Allergy Unknown Verified 02/06/20 12:23 sulfamethoxazole Allergy Unknown Verified 02/06/20 12:23 [From Bactrim] trimethoprim [From Bactrim] Allergy Unknown Verified 02/06/20 12:23 Home Medications Medication Instructions Recorded Confirmed Last Taken Type Amiodarone [Cordarone 200 MG TAB] 400 mg PO BID 02/07/20 02/07/20 Unknown History Aspirin [Aspirin BABY CHEW TAB] 81 mg PO DAILY 02/07/20 02/07/20 Unknown History Atorvastatin 40 mg PO HS 02/07/20 02/07/20 Unknown History Docusate Sodium [Colace CAP] 100 mg PO BID 02/07/20 02/07/20 Unknown History Famotidine [Pepcid] 20 mg PO HS 02/07/20 02/07/20 Unknown History Ferrous Sulfate [Iron 325 MG] 325 mg PO DAILY 02/07/20 02/07/20 Unknown History Insulin Detemir (Nf) [Levemir 3 units SQ BID 02/07/20 02/07/20 Unknown History Flextouch (Nf)] Ticagrelor [Brilinta] 90 mg PO BID 02/07/20 02/07/20 Unknown History clonazePAM [ Klonopin] 0.25 mg PO BID PRN 02/07/20 02/07/20 Unknown History Active Meds: Active Medications Acetaminophen (Tylenol) 650 mg PO Q6H PRN PRN Reason: Pain, Mild (1-3) Last Admin: 02/16/20 21:12 Dose: 650 mg Documented by: Albuterol (Proventil) 2.5 mg IH Q4HRT PRN PRN Reason: Shortness Of Breath Amiodarone HCl (Cordarone) 400 mg PO BID [facility] Last Admin: 02/17/20 21:57 Dose: 400 mg Documented by: Aspirin (Baby Aspirin) 81 mg PO DAILY [facility] Last Admin: 02/17/20 10:23 Dose: 81 mg Documented by: Atorvastatin Calcium (Lipitor) 40 mg PO QHS [facility] Last Admin: 02/17/20 21:57 Dose: 40 mg Documented by: Clonazepam (Klonopin) 0.25 mg PO TID [facility] Last Admin: 02/17/20 21:56 Dose: 0.25 mg Documented by: Docusate Sodium (Colace) 100 mg PO BID [facility] Last Admin: 02/17/20 21:57 Dose: 100 mg Documented by: Famotidine (Pepcid) 20 mg PO [facility] Last Admin: 02/17/20 21:57 Dose: 20 mg Documented by: Ferrous Sulfate (Feosol) 325 mg PO DAILY [facility] Last Admin: 02/17/20 10:22 Dose: 325 mg Documented by: Insulin Glargine (Lantus) 3 units SUB-Q BIDDIAB [facility] Last Admin: 02/17/20 19:16 Dose: 3 units Documented by: Levofloxacin (Levaquin) 750 mg PO Q48HR [facility] Risperidone (Risperdal) 2 mg PO BID [facility] Last Admin: 02/17/20 21:56 Dose: 2 mg Documented by: Ticagrelor (Brilinta) 90 mg PO BID [facility] Last Admin: 02/17/20 21:58 Dose: 90 mg Documented by: Ziprasidone (Geodon) 10 mg IM Q6H PRN PRN Reason: Agitation Last Admin: 02/11/20 14:02 Dose: 10 mg Documented by: Results - Results Labs/Vitals: Laboratory Last Values WBC 19.5 K/mm3 (4.5-11.0) H 02/17/20 08:41 RBC 3.45 M/mm3 (3.65-5.03) L 02/17/20 08:41 Hgb 9.7 gm/dl (11.8-15.2) L 02/17/20 08:41 Hct 31.2 % (35.5-45.6) L 02/17/20 08:41 MCV 90 fl (84-94) 02/17/20 08:41 MCH 28 pg (28-32) 02/17/20 08:41 MCHC 31 % (32-34) L 02/17/20 08:41 RDW 19.4 % (13.2-15.2) H 02/17/20 08:41 Plt Count 281 K/mm3 (140-440) 02/17/20 08:41 Lymph % (Auto) 7.2 % (13.4-35.0) L 02/17/20 08:41 [place] % (Auto) 4.4 % (0.0-7.3) 02/17/20 08:41 Eos % (Auto) 0.9 % (0.0-4.3) 02/17/20 08:41 Baso % (Auto) 0.3 % (0.0-1.8) 02/17/20 08:41 Lymph # 1.4 K/mm3 (1.2-5.4) 02/17/20 08:41 [place] # 0.9 K/mm3 (0.0-0.8) H 02/17/20 08:41 Eos # 0.2 K/mm3 (0.0-0.4) 02/17/20 08:41 Baso # 0.1 K/mm3 (0.0-0.1) 02/17/20 08:41 Seg Neutrophils % 87.2 % (40.0-70.0) H 02/17/20 08:41 Seg Neutrophils # 17.0 K/mm3 (1.8-7.7) H 02/17/20 08:41 Sodium 137 mmol/L (137-145) 02/07/20 20:10 Potassium 4.2 mmol/L (3.6-5.0) 02/07/20 20:10 Chloride 101.6 mmol/L (98-107) 02/07/20 20:10 Carbon Dioxide 20 mmol/L (22-30) L 02/07/20 20:10 Anion Gap 20 mmol/L 02/07/20 20:10 BUN 27 mg/dL (9-20) H 02/07/20 20:10 Creatinine 2.0 mg/dL (0.8-1.5) H 02/07/20 20:10 Estimated GFR 33 ml/min 02/07/20 20:10 BUN/Creatinine Ratio 14 % 02/07/20 20:10 Glucose 132 mg/dL (75-100) H 02/07/20 20:10 POC Glucose 291 (70-105) H 02/17/20 20:04 Hemoglobin A1c 5.1 % (4-6) 02/06/20 12:25 Calcium 9.2 mg/dL (8.4-10.2) 02/07/20 20:10 Total Bilirubin 0.40 mg/dL (0.1-1.2) 02/07/20 20:10 AST 28 units/L (5-40) 02/07/20 20:10 ALT 19 units/L (7-56) 02/07/20 20:10 Alkaline Phosphatase 79 units/L (35-129) 02/07/20 20:10 Total Protein 7.2 g/dL (6.3-8.2) 02/07/20 20:10 Albumin 3.1 g/dL (3.9-5) L 02/07/20 20:10 Albumin/Globulin Ratio 0.8 % 02/07/20 20:10 Triglycerides 131 mg/dL (2-149) 02/07/20 20:10 Cholesterol 119 mg/dL (50-199) 02/07/20 20:10 LDL Cholesterol Direct 49 mg/dL (50-130) L 02/07/20 20:10 HDL Cholesterol 50 mg/dL (40-59) 02/07/20 20:10 Cholesterol/HDL Ratio 2.38 % 02/07/20 20:10 TSH 5.280 mlU/mL (0.270-4.200) H 02/07/20 20:10 Last Vital Signs Temp 98.1 F 02/17/20 10:14 Pulse 92 H 02/17/20 19:28 Resp 22 02/17/20 17:30 BP 147/58 02/17/20 19:28 Pulse Ox 100 02/17/20 20:51
[2020-02-18] MEDS: INSULIN GLARGINE 100 UNITS/ML SUB-Q SCH (09:44)
[2020-02-18] MEDS ORDERED: levoFLOXacin 750 MG TAB PO SCH (10:00)
[2020-02-18 11:26] LABS: Basophils % (Auto) 0.1 % (0.0-1.8); Eosinophils % (Auto) 0.2 % (0.0-4.3); Lymphocytes # (Auto) 1.5 K/mm3 (1.2-5.4); Lymphocytes % (Auto) 7.7 % (13.4-35.0); Monocytes # (Auto) 0.8 K/mm3 (0.0-0.8); Monocytes % (Auto) 4.3 % (0.0-7.3)
[2020-02-18 11:42] LABS: Hematocrit 31.5 % (35.5-45.6); Mean Corpuscular HGB Conc 32 % (32-34); Mean Corpuscular Volume 87 fl (84-94); Platelet Count 288 K/mm3 (140-440); Red Blood Count 3.63 M/mm3 (3.65-5.03)
[2020-02-18 11:45] LABS: Calcium 8.7 mg/dL (8.4-10.2)
[2020-02-18] MEDS: TICAGRELOR 90 MG TAB PO SCH (12:29)
[2020-02-18] MEDS: clonazePAM 0.5 MG TAB PO SCH ×2 (12:30→16:22)
[2020-02-18] MEDS: AMIODARONE 200 MG TAB PO SCH (12:30)
[2020-02-18] MEDS: DOCUSATE SODIUM 100 MG CAP PO SCH (12:36)
[2020-02-18] MEDS: risperiDONE 1 MG TAB PO SCH (12:36)
[2020-02-18] MEDS: ASPIRIN 81 MG TAB CHEW PO SCH (12:36)
[2020-02-18] MEDS: FERROUS SULFATE 325 MG TAB PO SCH (12:37)
--- NOTE | 2020-02-18 12:42 | Event Note ---
Date: 02/17/20 Chest x-ray suggestive for left lower lobe infiltrates could be likely due to aspiration as patient has history of dysphagia from remote CVA We will start on Levaquin for now, will wait for blood culture. Primary also ordered for COVID-19, I agree with that Will repeat CBC and BMP tomorrow morning, will monitor temperature If spikes temperature again we will transfer the patient to medicine unit Continue supportive care for now, encouraged eating according to speech eval and take aspiration precaution
[2020-02-18] MEDS ORDERED: AMOXICILLIN/K CLAV 250-62.5MG/5 ML ORAL SYRINGE PO SCH (13:00)
[2020-02-18] MEDS ORDERED: AMOXICILLIN/K CLAV 500/125MG TAB PO SCH (14:00)
--- NOTE | 2020-02-18 15:29 | Progress Note ---
Assessment and Plan -- Febrile illness with LLL PNA Spiked temperature up to 100.7, now afebrile CXR showed LLL infiltrates - likely aspiration negative for COVID, will change abx to augmention BID to complete for one week --Schizoaffective disorder; --Suicidal behavior Management per psych --Hypertension; moderate control Continue current antihypertensives --History of CVA; with residual weakness and dysphagia Supportive care, continue diet per speech recommendation --Coronary artery disease; continue home medications --Dyslipidemia; continue statin --DVT prophylaxis; SCDs while resting --Full CODE STATUS Physical exam: GENERAL: well-developed elderly white male sitting in a chair in the recreation area. HEENT: Normocephalic. Atraumatic. No conjunctival congestion or icterus. Patient has moist mucous membranes. NECK: Supple. Trachea midline. CHEST/LUNGS: Clear to auscultated bilaterally, breathing nonlabored. Did not appreciate any wheezes crackles or rhonchi. HEART/CARDIOVASCULAR: Regular in rate and rhythm. S1 and S2 positive. ABDOMEN: Abdomen is soft, nontender. Patient has normal bowel sounds. SKIN: There is no rash. Warm and dry. NEURO: No focal motor deficit. Follows command. MUSCULOSKELETAL: No joint effusion or tenderness. EXTRIMITY: No edema, no cyanosis or clubbing. PSYCH: Cooperative. Subjective Date of service: 02/18/20 Principal diagnosis: Dementia w/Behavioral Disturbance Interval history: Patient seen and examined. Medical records and medication list reviewed. No acute event overnight noted by the RN. Patient denies any chest pain or difficulty breathing. Patient is tolerating diet. Discussed plan of care at bedside with patient's RN Objective - Constitutional Vitals: Vital Signs - 12hr 02/18/20 10:25 Pulse Rate [ 92 H Anterior] Respiratory 20 Rate [Anterior] - Labs CBC & Chem 7: 02/18/20 10:51 02/18/20 10:51 Labs: Abnormal lab results 02/17/20 02/17/20 02/18/20 Range/Units 16:37 20:04 10:51 WBC 19.4 H (4.5-11.0) K/mm3 RBC 3.63 L (3.65-5.03) M/mm3 Hgb 10.0 L (11.8-15.2) gm/dl Hct 31.5 L (35.5-45.6) % RDW 19.0 H (13.2-15.2) % Lymph % (Auto) 7.7 L (13.4-35.0) % Seg Neutrophils % 87.7 H (40.0-70.0) % Seg Neutrophils # 17.0 H (1.8-7.7) K/mm3 Sodium (137-145) mmol/L Carbon Dioxide (22-30) mmol/L BUN (9-20) mg/dL Glucose (75-100) mg/dL POC Glucose 115 H 291 H (70-105) // Range/Units 10:51 WBC (4.5-11.0) K/mm3 RBC (3.65-5.03) M/mm3 Hgb (11.8-15.2) gm/dl Hct (35.5-45.6) % RDW (13.2-15.2) % Lymph % (Auto) (13.4-35.0) % Seg Neutrophils % (40.0-70.0) % Seg Neutrophils # (1.8-7.7) K/mm3 Sodium 134 L (137-145) mmol/L Carbon Dioxide 20 L (22-30) mmol/L BUN 41 H (9-20) mg/dL Glucose 120 H (75-100) mg/dL POC Glucose (70-105)
--- NOTE | 2020-02-18 19:20 | Discharge Summary ---
Providers - Providers Date of Admission: 02/06/20 22:13 Date of discharge: 02/18/20 Attending physician: HARIKA MENDEZ MD 02/06/20 18:25 Consult to Physician [CONS] Routine Comment: Consulting Provider: ADAM VALENCIA Physician Instructions: Reason For Exam: manage medical conditions 02/08/20 19:25 Speech Therapy Evaluation and Treat [CONS] Routine Reason For Exam: History of CVA, difficulty swallowing Primary care physician: RECEIVING TELLER Hospitalization Reason for admission: Danger to others Condition: Good Hospital course: The patient was provided inpatient psychiatric treatment with safe and supportive environment, group/individual therapy, psychiatric medication, medication adjustment, adverse effect monitor, medical evaluation, medical treatment, social service assessment, social support meeting, placement assessment and psycho-education. The patients mood, cognition, behavior, mo tivation, compliance to treatment and appreciation on family/social support are improved and stabilized. No bizzare behavior beyond reported baseline. Disposition: DC-50 TO HOSPICE (HOME) Allergies/Adverse Reactions: Allergies meperidine [From Demerol] Allergy (Verified 02/06/20 12:23) Unknown sulfamethoxazole [From Bactrim] Allergy (Verified 02/06/20 12:23) Unknown trimethoprim [From Bactrim] Allergy (Verified 02/06/20 12:23) Unknown Vital Signs: Last Vital Signs Temp 98.1 F 02/17/20 10:14 Pulse 92 H 02/18/20 10:25 Resp 20 02/18/20 10:25 BP 147/58 02/17/20 19:28 Pulse Ox 100 02/17/20 20:51 Last Lab: Laboratory Last Values WBC 19.4 K/mm3 (4.5-11.0) H 02/18/20 10:51 RBC 3.63 M/mm3 (3.65-5.03) L 02/18/20 10:51 Hgb 10.0 gm/dl (11.8-15.2) L 02/18/20 10:51 Hct 31.5 % (35.5-45.6) L 02/18/20 10:51 MCV 87 fl (84-94) 02/18/20 10:51 MCH 28 pg (28-32) 02/18/20 10:51 MCHC 32 % (32-34) 02/18/20 10:51 RDW 19.0 % (13.2-15.2) H 02/18/20 10:51 Plt Count 288 K/mm3 (140-440) 02/18/20 10:51 Lymph % (Auto) 7.7 % (13.4-35.0) L 02/18/20 10:51 [place] % (Auto) 4.3 % (0.0-7.3) 02/18/20 10:51 Eos % (Auto) 0.2 % (0.0-4.3) 02/18/20 10:51 Baso % (Auto) 0.1 % (0.0-1.8) 02/18/20 10:51 Lymph # 1.5 K/mm3 (1.2-5.4) 02/18/20 10:51 [place]verse # 0.8 K/mm3 (0.0-0.8) 02/18/20 10:51 Eos # 0.0 K/mm3 (0.0-0.4) 02/18/20 10:51 Baso # 0.0 K/mm3 (0.0-0.1) 02/18/20 10:51 Seg Neutrophils % 87.7 % (40.0-70.0) H 02/18/20 10:51 Seg Neutrophils # 17.0 K/mm3 (1.8-7.7) H 02/18/20 10:51 Sodium 134 mmol/L (137-145) L 02/18/20 10:51 Potassium 4.6 mmol/L (3.6-5.0) 02/18/20 10:51 Chloride 98.6 mmol/L (98-107) 02/18/20 10:51 Carbon Dioxide 20 mmol/L (22-30) L 02/18/20 10:51 Anion Gap 20 mmol/L 02/18/20 10:51 BUN 41 mg/dL (9-20) H 02/18/20 10:51 Creatinine 1.5 mg/dL (0.8-1.5) 02/18/20 10:51 Estimated GFR 46 ml/min 02/18/20 10:51 BUN/Creatinine Ratio 27 % 02/18/20 10:51 Glucose 120 mg/dL (75-100) H 02/18/20 10:51 POC Glucose 96 (70-105) 02/18/20 07:53 Hemoglobin A1c 5.1 % (4-6) 02/06/20 12:25 Calcium 8.7 mg/dL (8.4-10.2) 02/18/20 10:51 Total Bilirubin 0.40 mg/dL (0.1-1.2) 02/07/20 20:10 AST 28 units/L (5-40) 02/07/20 20:10 ALT 19 units/L (7-56) 02/07/20 20:10 Alkaline Phosphatase 79 units/L (35-129) 02/07/20 20:10 Total Protein 7.2 g/dL (6.3-8.2) 02/07/20 20:10 Albumin 3.1 g/dL (3.9-5) L 02/07/20 20:10 Albumin/Globulin Ratio 0.8 % 02/07/20 20:10 Triglycerides 131 mg/dL (2-149) 02/07/20 20:10 Cholesterol 119 mg/dL (50-199) 02/07/20 20:10 LDL Cholesterol Direct 49 mg/dL (50-130) L 02/07/20 20:10 HDL Cholesterol 50 mg/dL (40-59) 02/07/20 20:10 Cholesterol/HDL Ratio 2.38 % 02/07/20 20:10 TSH 5.280 mlU/mL (0.270-4.200) H 02/07/20 20:10 Coronavirus (PCR) Negative (Negative) 02/17/20 Unknown Core Measure Documentation - Palliative Care Palliative Care/ Comfort Measures: Not Applicable - Core Measures Any of the following diagnoses?: none Exam - Constitutional Vitals: Temp Pulse Resp BP Pulse Ox 98.1 F 92 H 20 147/58 100 02/17/20 10:14 02/18/20 10:25 02/18/20 10:25 02/17/20 19:28 02/17/20 20:51 - EENT Eyes: Present: PERRL, EOM intact ENT: hearing intact, clear oral mucosa - Neck Neck: Present: supple, normal ROM - Respiratory Respiratory effort: normal - Abdominal Male genitourinary: Present: normal Plan Care Plan Goals: Care Plan Goals: Maintain good and stable mental health. Plan of Treatment: The patient should be compliant with medications, not to use drugs and not to drink alcohol. The patient understands that if suicidal ideas, homicidal ideas, or any endangering thoughts arise, the patient should immediately seek for emergent assistance including but not limited to crisis hot line and emergency room. Health Concerns: none indicated Assessment: n/a Follow up with: PRIMARY CARE, [Primary Care Provider] - 7 Days Prescriptions: clonazePAM [KlonoPIN] 0.25 mg PO QAM #30 tablet risperiDONE [RisperDAL] 2 mg PO BID #30 tablet
[2020-02-19] MEDS ORDERED: levoFLOXacin 750 MG TAB PO SCH (10:00)
== END 2020-02-18 16:30 | disposition hospice, home (50) | DRG 885 ==
LOC: UNDOADMIN 17:34 → 3A 17:34 → 5A 22:13
PROVIDERS: ADMIT Psychiatry & Neurology Psychiatry; ATTEND Psychiatry & Neurology Psychiatry
DX: F25.9 Schizoaffective disorder, unspecified (principal); I11.0 Hypertensive heart disease with heart failure; J18.9 Pneumonia, unspecified organism; F03.91 Unspecified dementia, unspecified severity, with behavioral disturbance; I69.359 Hemiplegia and hemiparesis following cerebral infarction affecting unspecified side; Z20.828 Contact with and (suspected) exposure to other viral communicable diseases; I25.10 Atherosclerotic heart disease of native coronary artery without angina pectoris; J44.9 Chronic obstructive pulmonary disease, unspecified; E11.9 Type 2 diabetes mellitus without complications; I50.9 Heart failure, unspecified; E78.5 Hyperlipidemia, unspecified; R13.10 Dysphagia, unspecified; Z91.09 Other allergy status, other than to drugs and biological substances; Z79.82 Long term (current) use of aspirin; Z79.4 Long term (current) use of insulin; Z86.718 Personal history of other venous thrombosis and embolism; I69.391 Dysphagia following cerebral infarction
CPT/HCPCS: 36415; 70450; 71045; 74230; 80048; 80053; 80061; 80307; 80320; 81001; 82962; 83036; 84443; 85025; 87040; 94640; G0378; A9270-GY; G0480; J1815; J3486; U0003-CS